=== PATIENT | male | born 1955 | race Caucasian/White ===

== ENCOUNTER → 2018-06-11 11:14 | Outpatient (CLI) | payer MEDICARE, SELFPAY ==
[2018-06-11 11:21] LABS: Microscopic, Urine URINE MICROSCOPIC (MICROSCOPIC)
[2018-06-11 14:05] LABS: Basophils % 0.4 % (0.1-2.0); Eosinophils # 0.2 K/mm3 (0.0-0.4); Eosinophils % 3.8 % (0.1-12.0); Hematocrit 40.1 % (42.0-52.0); Hemoglobin 12.6 g/dL (14.1-18.0); Lymphocytes # 2.1 K/mm3 (0.7-4.5); Lymphocytes % 32.4 % (10-50); Mean Corpuscular HGB Conc 31.4 g/dL (31.8-35.4); Mean Corpuscular Hemoglobin 32.6 pg (27.0-31.2); Mean Corpuscular Volume 103.5 fl (80-94); Mean Platelet Volume 7.2 fl (7.4-10.4); Monocytes # 0.2 K/mm3 (0.1-1.0); Monocytes % 3.8 % (1.7-9.3); Neutrophils # 3.8 K/mm3 (1.8-7.8); Neutrophils % 59.5 % (37.0-80.0); Platelet Count 291 K/mm3 (142-424); Red Blood Count 3.87 M/mm3 (4.60-6.20); Red Cell Distribution Width 14.3 % (11.5-17.5); White Blood Count 6.3 K/mm3 (4.8-10.8)
[2018-06-11 14:10] LABS: Appearance,Urine CLEAR (Clear); Bilirubin,Urine Negative (Negative); Blood, Urine Negative (Negative); Color,Urine YELLOW (Yellow); Glucose,Urine (UA) Negative (Negative); Ketones,Urine Negative (Negative); Leukocyte Esterase,Urine Negative (Negative); Nitrate,Urine Negative (Negative); PH,Urine 5.5 (5.0-8.5); Protein,Urine Negative (Negative); Urobilinogen,Urine 0.2 EU/dl (0.2)
[2018-06-11 14:20] LABS: Bacteria,Urine Trace /lpf; Squamous Epithelial Cell,Urine Occasional #/hpf (0-5)
[2018-06-11 14:53] LABS: Alanine Aminotransferase 16 U/L (12-78); Albumin Level 3.5 gm/dL (3.4-5.0); Anion Gap 13.2 mEq/L (5-15); Aspartate Amino Transferase 12 U/L (15-37); Bilirubin,Total 0.3 mg/dL (0.2-1.0); Blood Urea Nitrogen 12 mg/dL (7-18); Carbon Dioxide 28 mmol/L (21.0-32.0); Chloride 107 mmol/L (98-107); Creatinine,Serum 0.83 mg/dL (0.70-1.30); Estimated Glomerular Filt Rate 94 ml/min (>60); GFR (African American) 113 ML/MIN (>60); Glucose 90 mg/dL (74-106); Potassium 4.2 mmoL/L (3.5-5.1); Sodium 144 mmol/L (136-145); Total Protein,Serum 6.7 gm/dL (6.4-8.2)
[2018-06-11 14:54] LABS: Albumin/Globulin Ratio 1.1 (1.1-1.8); Alkaline Phosphatase 65 U/L (46-116); Chol/HDL Ratio 6.2 (1-3.5); Cholesterol 237 mg/dL (140-200); Globulin 3.2 gm/dl (1.3-3.2); HDL Cholesterol 38 mg/dL (27-67); LDL Cholesterol 183 mg/dL (0-130); Prostate Specific Ag Screen 0.2 ng/mL (0.0-4.0); Thyroid Stimulating Hormone 1.66 uIU/ml (0.358-3.740); Triglycerides 81 mg/dL (30-200); VLDL Cholesterol 16 mg/dL (0-40)
[2018-06-12 15:36] LABS: Vitamin B12 201 pg/mL (232-1245)
[2018-06-12 15:37] LABS: Folate 17.8 ng/mL (>3.0)
== END ==
PROVIDERS: PCP Emergency Medicine; Visit Provider Emergency Medicine
DX: Z12.5 Encounter for screening for malignant neoplasm of prostate (principal); E03.9 Hypothyroidism, unspecified; E78.5 Hyperlipidemia, unspecified; G62.9 Polyneuropathy, unspecified; J44.9 Chronic obstructive pulmonary disease, unspecified; E53.8 Deficiency of other specified B group vitamins
CPT/HCPCS: 36415; 80053; 80061; 81001; 82607; 82746; 84443; 85025; G0103

== ENCOUNTER → 2019-06-28 09:43 | Outpatient (CLI) | payer MEDICARE, SELFPAY ==
[2019-06-28 09:51] LABS: Microscopic, Urine URINE MICROSCOPIC (MICROSCOPIC)
[2019-06-28 14:33] LABS: Appearance,Urine CLEAR (Clear); Bilirubin,Urine Negative (Negative); Blood, Urine Negative (Negative); Color,Urine YELLOW (Yellow); Glucose,Urine (UA) Negative (Negative); Ketones,Urine Negative (Negative); Leukocyte Esterase,Urine Negative (Negative); Nitrate,Urine Negative (Negative); PH,Urine 5.5 (5.0-8.5); Protein,Urine Negative (Negative); Urobilinogen,Urine 0.2 EU/dl (0.2)
[2019-06-28 14:53] LABS: Bacteria,Urine Trace /lpf; Mucus,Urine 2+ /lpf; RBC,Urine Occasional #/hpf (0-3)
[2019-06-28 15:06] LABS: Basophils % 0.4 % (0.1-2.0); Eosinophils # 0.2 K/mm3 (0.0-0.4); Eosinophils % 2.9 % (0.1-12.0); Hematocrit 40.3 % (42.0-52.0); Hemoglobin 13.6 g/dL (14.1-18.0); Lymphocytes # 2.4 K/mm3 (0.7-4.5); Lymphocytes % 33.4 % (10-50); Mean Corpuscular HGB Conc 33.8 g/dL (31.8-35.4); Mean Corpuscular Hemoglobin 34.1 pg (27.0-31.2); Mean Corpuscular Volume 101.1 fl (80-94); Mean Platelet Volume 8.2 fl (7.4-10.4); Monocytes # 0.3 K/mm3 (0.1-1.0); Monocytes % 4.6 % (1.7-9.3); Neutrophils # 4.3 K/mm3 (1.8-7.8); Neutrophils % 58.6 % (37.0-80.0); Platelet Count 298 K/mm3 (142-424); Red Blood Count 3.98 M/mm3 (4.60-6.20); Red Cell Distribution Width 13.4 % (11.5-17.5); White Blood Count 7.3 K/mm3 (4.8-10.8)
[2019-06-28 15:29] LABS: Alanine Aminotransferase 17 U/L (12-78); Albumin Level 3.6 gm/dL (3.4-5.0); Albumin/Globulin Ratio 1.1 (1.1-1.8); Alkaline Phosphatase 73 U/L (46-116); Anion Gap 15.1 mEq/L (5-15); Aspartate Amino Transferase 14 U/L (15-37); Bilirubin,Total 0.4 mg/dL (0.2-1.0); Blood Urea Nitrogen 14 mg/dL (7-18); Calcium 8.9 mg/dL (8.5-10.1); Carbon Dioxide 25 mmol/L (21.0-32.0); Chloride 107 mmol/L (98-107); Chol/HDL Ratio 6.7 (1-3.5); Cholesterol 249 mg/dL (140-200); Creatine Kinase 84 U/L (39-308); Creatinine,Serum 0.93 mg/dL (0.70-1.30); Estimated Glomerular Filt Rate 82 ml/min (>60); GFR (African American) 99 ML/MIN (>60); Globulin 3.3 gm/dl (1.3-3.2); Glucose 90 mg/dL (74-106); HDL Cholesterol 37 mg/dL (27-67); LDL Cholesterol 191 mg/dL (0-130); Potassium 4.1 mmoL/L (3.5-5.1); Prostate Specific Ag Screen 0.4 ng/mL (0.0-4.0); Sodium 143 mmol/L (136-145); Thyroid Stimulating Hormone 2.78 uIU/ml (0.358-3.740); Total Protein,Serum 6.9 gm/dL (6.4-8.2); Triglycerides 103 mg/dL (30-200); VLDL Cholesterol 21 mg/dL (0-40)
[2019-06-29 10:21] LABS: Vitamin B12 841 pg/mL (232-1245); Vitamin D 25 Hydroxy 28.3 ng/mL (30.0-100.0)
[2019-06-29 18:09] LABS: Folate 18.6 ng/mL (>3.0)
== END ==
PROVIDERS: Visit Provider Emergency Medicine
DX: E78.5 Hyperlipidemia, unspecified (principal); E53.8 Deficiency of other specified B group vitamins; E55.9 Vitamin D deficiency, unspecified; G62.9 Polyneuropathy, unspecified; J44.9 Chronic obstructive pulmonary disease, unspecified; Z12.5 Encounter for screening for malignant neoplasm of prostate
CPT/HCPCS: 36415; 80053; 80061; 81001; 82550; 82607; 82652; 82746; 84443; 85025; G0103

== ENCOUNTER 2020-11-21 18:14 | Inpatient (IN) | payer MEDICARE, SELFPAY ==
[2020-11-21] VITALS (21 sets, daily range): BP systolic 77–120; BP diastolic 47–69; PULSE 53–77; RESP 15–18; TEMP 36.5–36.7; O2SAT 90–100; BMI 22.4; BMI 22.3
--- NOTE | 2020-11-21 | IR_ITS ---
APPROVED REPORT Patient Location: Emergent Auto Hiker: QUINTON Dugan RT (R) PROCEDURES Left heart catheterization Left ventriculogram Selective coronary angiogram Drug-eluting stent deployment to the ostial proximal and distal dominant right coronary artery Drug-eluting stent deployment to the ostial proximal left main artery INDICATION Acute inferolateral right ventricular ST elevation myocardial infarction, Cardiogenic shock, Coronary artery disease Informed consent was obtained prior to the procedure. COMPLICATIONS None Estimated Blood Loss: less than 10ml TECHNIQUE One percent lidocaine used to anesthetize the right anterior aspect of the wrist. The right radial artery was accessed via the Seldinger technique. A 6 [place] sheath was placed in the right radial artery. 2.5 mg of verapamil, 800 mcg of nitroglycerin, 1mg Lidocaine were given through the arterial sheath. A [employer] catheter was also used to perform left heart catheterization, left ventriculogram and selective coronary angiogram. The catheter was initially placed in the right coronary artery and angiography was performed. A Choice PT extra-support wire was used to push through the occlusion and initially a 3 mm x 38 mm resolute [place] stent was deployed at 20 octavio restoring THOR-3 flow and avoiding the myocardial infarction. It was apparent after inflation that the stent was undersized. Rather than post dilating the 3 mm stent it was decided to add a 4 mm x 38 mm stent which was placed distal to the stent yet still overlapping it and deployed at 20 octavio. This was much better sized and an additional 4 mm x 38 mm resolute [place] stent was then placed proximal to this extending back into the ostium and also deployed at 20 octavio. The catheter was then used to perform left coronary artery angiography however immediately on engagement there was severe dampening therefore the catheter was pulled out of the left main artery. Cusp angiography demonstrated a critical left main stenosis. Patient artery received atropine for bradycardia and hypotension. Because of the critical left main artery the Choice PT wire was then placed distally in the LAD and a 4 mm x 8 mm resolute [place] stent was deployed at 20 octavio in the ostium of the left main artery. A 5 mm x 15 mm balloon was then placed back into the stent and deployed at 20 octavio to post dilate excellent angiographic results were obtained with THOR II flow being present at the beginning of the procedure in the LAD with THOR-3 flow at the end of the procedure. After achieving excellent angiographic results the apparatus was removed the sheath was removed and good hemostasis was achieved using TR banding. Patient was transferred the postop holding in stable condition ANGIOGRAPHIC RESULTS The left main artery Has an ostial concentric 80% stenosis and a distal 20 to 30% stenosis The left anterior descending artery Has proximal tandem 30% stenoses with a mid vessel 40% stenosis The circumflex artery Is a nondominant vessel with mid vessel soft eccentric plaque The right coronary artery Is a large dominant vessel initially proximally occluded. After revascularization the right coronary artery is widely patent with excellent THOR-3 flow into large posterior lateral and posterior descending artery The COSBY ventriculogram reveals Dilated ventricle ejection fraction 25 to 30% with inferior apical hypokinesis The left ventricular end-diastolic pressure 25 to 30 mmHg IMPRESSION Critical coronary artery disease as described above Successful stenting of the ostial proximal mid and distal dominant right coronary artery all in a contiguous manner with 3 drug-eluting stents as described above Severe
--- NOTE | 2020-11-21 18:13 | ECG_ITS ---
APPROVED REPORT Exam: Resting ECG HR:52 bpm ECG Measurements Heart Rate 52 AXES WA 186 P 52 QRSd 98 QRS 58 QT 424 T 89 QTc [address] elevation, consider inferior injury or acute infarct ACUTE PA Consider right ventricular involvement in acute inferior infarct Abnormal ECG Electronically signed by : Ryan Lutz, 11/22/2020 20:27:49
--- NOTE | 2020-11-21 18:18 | HMH.EDGENADL ---
ED Disposition Clinical Impression: STEMI (ST elevation myocardial infarction) Qualifiers: Involved coronary artery: unspecified coronary artery Qualified Code(s): I21.3 - ST elevation (STEMI) myocardial infarction of unspecified site Disposition: Admitted As Inpatient Condition on Discharge: Critical Referrals: Altagracia Moreno APRN [Primary Care Provider] - Time of Disposition: 18:42 - Critical Care Critical Care Time: Yes Attestation: On , the high probability of a clinically significant, sudden or life threatening deterioration of the following system(s) required my full and direct attention, intervention and personal management. The time I documented below is in addition to time spent performing reported procedures but includes the following listed in this critical care notation. 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 - Juancarlos Inquiry Pt receiving controlled substance: No - Lab Data Lab Results 11/21/20 18:18: WBC 8.7, RBC 3.64 L, Hgb 12.3 L, Hct 36.9 L, MCV 101.3 H, MCH 33.7 H, MCHC 33.3, RDW 14.3, Plt Count 322, MPV 7.1 L, Neut % (Auto) 54.1, Lymph % (Auto) 39.7, [place] % (Auto) 4.5, Eos % (Auto) 1.2, Baso % (Auto) 0.5, Neut # (Auto) 4.7, Lymph # (Auto) 3.5, [place] # (Auto) 0.4, Eos # (Auto) 0.1, Baso # (Auto) 0.0 Result diagrams: 11/21/20 18:18 Orders (Tests/Meds): ED MEDICATIONS Generic Name Dose Route Start Last Admin Trade Name Freq PRN Reason Stop Dose Admin Diphenhydramine HCl 50 mg 11/21/20 18:32 Diphenhydramine 50mg/Ml Vial IV 11/21/20 18:33 ONCE ONE Fentanyl Citrate 25 mcg 11/21/20 18:32 Fentanyl 100mcg/2ml Vial IV 11/22/20 18:32 Q3MINP PRN Moderate to Severe Pain Fentanyl Citrate 50 mcg 11/21/20 18:32 Fentanyl 100mcg/2ml Vial IV 11/22/20 18:32 Q3MINP PRN Moderate to Severe Pain Fentanyl Citrate 25 mcg 11/21/20 18:32 Fentanyl 250mcg/5ml Vial IV 11/22/20 18:32 Q3MINP PRN Moderate to Severe Pain Fentanyl Citrate 50 mcg 11/21/20 18:32 Fentanyl 250mcg/5ml Vial IV 11/22/20 18:32 Q3MINP PRN Moderate to Severe Pain Flumazenil 0.2 mg 11/21/20 18:32 Flumazenil 0.1mg/Ml 5ml Vial IV 11/21/20 23:00 NEEDED PRN Sedation Heparin Sodium (Porcine) 10,000 unit 11/21/20 18:32 Heparin 1,000 Units/Ml 10ml Vial (Adoption Social Worker) IV 11/21/20 22:32 NEEDED PRN Emergency Box Inside Sales Professional Heparin Sodium/Sodium Chloride 3,000 unit 11/21/20 18:32 Heparin 1,000 Units/500ml Ns (Adoption Social Worker) IV 11/21/20 18:33 ONCE ONE Sodium Chloride 1,000 mls @ 25 mls/hr 11/21/20 18:45 Sod Chlor 0.9% 1000ml Bag IV 11/22/20 18:32 .Q25H NADIYA Lidocaine HCl 20 ml 11/21/20 18:32 Lidocaine 1% 5ml Pf Vial IJ 11/21/20 18:33 ONCE ONE Lidocaine HCl 20 ml 11/21/20 18:32 Lidocaine 1% 10ml Mdv IJ 11/21/20 18:33 ONCE ONE Midazolam HCl 1 mg 11/21/20 18:32 Midazolam 2mg/2ml Vial IV 11/22/20 18:32 Q3MINP PRN Sedation Midazolam HCl 1 mg 11/21/20 18:32 Midazolam Hcl 1mg/1ml 5ml Vial IV 11/22/20 18:32 Q3MINP PRN Sedation Naloxone HCl 0.4 mg 11/21/20 18:32 Naloxone 0.4mg/Ml Vial IV 11/22/20 18:32 Q5MINP PRN Decreased Respirations Nitroglycerin 800 mcg 11/21/20 18:32 Nitroglycerin 800mcg/8ml Syr (Adoption Social Worker) IV 11/22/20 18:32 NEEDED PRN Emergency Box Inside Sales Professional Verapamil HCl 2.5 mg 11/21/20 18:32 Verapamil 2.5mg/Ml 2ml Vial IV 11/21/20 18:33 ONCE ONE ORDERS Category Date Time Status CXR --portable [XR chest portable] Stat Exams 11/21/20 18:28 Taken Basic
[2020-11-21 18:25] LABS: Basophils % 0.5 % (0.1-2.0); Eosinophils # 0.1 K/mm3 (0.0-0.4); Eosinophils % 1.2 % (0.1-12.0); Hematocrit 36.9 % (42.0-52.0); Hemoglobin 12.3 g/dL (14.1-18.0); Lymphocytes # 3.5 K/mm3 (0.7-4.5); Lymphocytes % 39.7 % (10-50); Mean Corpuscular HGB Conc 33.3 g/dL (31.8-35.4); Mean Corpuscular Hemoglobin 33.7 pg (27.0-31.2); Mean Corpuscular Volume 101.3 fl (80-94); Mean Platelet Volume 7.1 fl (7.4-10.4); Monocytes # 0.4 K/mm3 (0.1-1.0); Monocytes % 4.5 % (1.7-9.3); Neutrophils # 4.7 K/mm3 (1.8-7.8); Neutrophils % 54.1 % (37.0-80.0); Platelet Count 322 K/mm3 (142-424); Red Blood Count 3.64 M/mm3 (4.60-6.20); Red Cell Distribution Width 14.3 % (11.5-17.5); White Blood Count 8.7 K/mm3 (4.8-10.8)
--- NOTE | 2020-11-21 18:28 | XR_ITS ---
PROCEDURE INFORMATION: Exam: XR Chest Exam date and time: 11/21/2020 6:28 PM Age: 65 years old Clinical indication: Abnormal findings; Abnormal ekg; Patient HX: Stemi alert TECHNIQUE: Imaging protocol: XR of the chest. Views: 1 view. COMPARISON: No relevant prior studies available. FINDINGS: Lungs: Patchy airspace opacities noted within both lung apices. The lungs are hyperinflated, consistent with underlying small airways disease. Pleural spaces: Unremarkable. No pleural effusion. No pneumothorax. Heart/Mediastinum: Unremarkable. No cardiomegaly. Vasculature: The vasculature demonstrates diffuse mild atherosclerotic calcification. Bones/joints: Unremarkable. IMPRESSION: 1. Patchy airspace opacities noted within both lung apices. 2. The lungs are hyperinflated, consistent with underlying small airways disease.
--- NOTE | 2020-11-21 18:35 | PC.NURSE ---
pt c/o chest pain, states his pain is worsening and feels like he is going to pass out. Appears to have more elevation of ST segment on compliance monitor. Notified ER MD, no new orders at this time.
[2020-11-21 18:38] LABS: Chloride 107 mmol/L (98-107); Sodium 140 mmol/L (136-145)
[2020-11-21 18:39] LABS: Potassium 4.1 mmoL/L (3.5-5.1)
--- NOTE | 2020-11-21 18:40 | PC.NURSE ---
pt to sugar laboratory assistant, transported per myself and kaushal florez
[2020-11-21 18:42] LABS: Anion Gap 11.1 mEq/L (5-15); Blood Urea Nitrogen 21 mg/dl (9-20); Calcium 9.7 mg/dl (8.4-10.2); Carbon Dioxide 26 mmol/L (22.0-30.0); Creatinine Clearance Estimated 70 mL/min (50-200); Estimated Glomerular Filt Rate 67 ml/min (>60); GFR (African American) 81 ML/MIN (>60); Glucose 126 mg/dl (74-100)
[2020-11-21 18:52] LABS: Coronavirus 19 IgG Antibody Negative (Negative); Coronavirus 19 IgM Antibody Negative (Negative)
--- NOTE | 2020-11-21 18:52 | PC.NURSE ---
Dr Levin speaking with Dr Dunham
[2020-11-21 18:55] LABS: Troponin I < 0.01 ng/ml (0.00-0.034)
--- NOTE | 2020-11-21 20:24 | PC.NURSE ---
PT ARRIVED TO FLOOR VIA STRETCHER FRO DRIER BELT CONVEYOR W/STAFF AT 2024
[2020-11-22] VITALS (14 sets, daily range): BP systolic 99–122; BP diastolic 55–65; PULSE 50–76; RESP 15–26; TEMP 36.7–36.9; O2SAT 94–98; BMI 21.2
--- NOTE | 2020-11-22 03:10 | PC.NURSE ---
@ 0213 - pt had a 32 beat run of v.tach, he was asleep at the time, pt was easily aroused. Pt denied any pain, SOA, or dizziness/light-headedness. BP 112/65, HR 48-56, RR 16, SaO2 98% on room air. Dr. Zhu notified- stated to contact him again if run was longer than this. Dr. Dunham was not paged, however as he has called this RN, he was notified of the events as well. New Order for Metoprolol tartrate 12.5mg PO q12, if pt happens to have a run of vtach again. Recommended defib pads to be kept on pt. Pt & updated on POC and episode of vtach. Questions answered.
--- NOTE | 2020-11-22 03:22 | PC.NURSE ---
Pt is A&Ox4, has ambulated to the BR 1x with staff SBA and tolerated well. Pt has been on room air, SaO2 96-99%, and lungs CTA. Right radial cath site has telfa/tegaderm DSG in place, CDI at thus far. 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 Arm board to R arm in place. Sinus Ahsan/NSR with inverted T wave & frequent PVCs noted on tele t/o most of shift. However, there was 1 episode of vtach (32beats), MDs notified. Pt has slept t/o most of the shift, although awakens easily. at bedside. Call light within reach.
[2020-11-22 06:12] LABS: Anion Gap 5.8 mEq/L (5-15); Blood Urea Nitrogen 14 mg/dl (9-20); Calcium 9.1 mg/dl (8.4-10.2); Carbon Dioxide 24 mmol/L (22.0-30.0); Chloride 112 mmol/L (98-107); Creatinine Clearance Estimated 73 mL/min (50-200); Estimated Glomerular Filt Rate 97 ml/min (>60); GFR (African American) 117 ML/MIN (>60); Glucose 86 mg/dl (74-100); Potassium 3.8 mmoL/L (3.5-5.1); Sodium 138 mmol/L (136-145)
[2020-11-22 06:14] LABS: Basophils % 0.5 % (0.1-2.0); Eosinophils # 0.1 K/mm3 (0.0-0.4); Eosinophils % 1.3 % (0.1-12.0); Hematocrit 33.6 % (42.0-52.0); Lymphocytes # 2.5 K/mm3 (0.7-4.5); Lymphocytes % 33.8 % (10-50); Mean Corpuscular HGB Conc 32.8 g/dL (31.8-35.4); Mean Corpuscular Hemoglobin 33.4 pg (27.0-31.2); Mean Corpuscular Volume 102.1 fl (80-94); Mean Platelet Volume 6.9 fl (7.4-10.4); Monocytes # 0.3 K/mm3 (0.1-1.0); Monocytes % 3.8 % (1.7-9.3); Neutrophils # 4.4 K/mm3 (1.8-7.8); Neutrophils % 60.6 % (37.0-80.0); Platelet Count 215 K/mm3 (142-424); Red Blood Count 3.29 M/mm3 (4.60-6.20); Red Cell Distribution Width 14.2 % (11.5-17.5); White Blood Count 7.3 K/mm3 (4.8-10.8)
--- NOTE | 2020-11-22 07:41 | HMH.HP ---
*Admission Date: 11/21/20 *Chief complaint: chest pain, STEMI *History of present illness: Mr. Rivera is a 65-year-old white male with past medical history of hypothyroidism, hyperlipidemia, COPD with antibiotic use every other day, and tobacco use disorder who presented to the ER via EMS secondary to chest pain. Symptoms began approximately 1-1.5 hrs prior to arrival. He reports this morning that he began having some substernal burning in his throat that progressed to his chest. Led to him having an episode of shortness of breath, diaphoresis, and dizziness. Pain also progressed to radiating to his shoulder and his back. His called EMS who contacted the ER for STEMI alert during transport. Cardiology took the patient to the Epic Ambulatory Analyst with deployment of multiple cardiac stents. See cardiac cath note for full details. Patient was noted to have severely reduced ejection fraction during the procedure and was admitted to medicine for further management after resumption of coronary artery blood flow. Patient has remained fairly stable overnight hemodynamically with stable bradycardia and well-controlled blood pressure without having received any beta-adolfo or PRAVIN inhibitor as of yet. He had a single 30 beat run of V. tach that self resolved. Has required no further intervention overnight, no defibrillation, no ACLS. Patient's is at bedside. He additionally reports smoking approximately 1.5 packs of cigarettes a day. Pleasant on interview this morning. Asking to go home. Denies significant chest pain but does have some minimal burning still. Telemetry reviewed. [facility] History I have reviewed the patient's past medical history: Yes Medical History: Reports:: Hyperlipidemia, Hypertension Denies:: Cancer, Diabetes Mellitus Type 1, Diabetes Mellitus Type 2, MRSA *Have you ever received a pneumonia vaccine?: No *Have you received a flu vaccine this season?: No Other Medical History: Reports: Hypothyroidism Other Surgeries: Yes: Hernia Repair (bilateral inguinal hernia) Amputation: No Fractures: No - *Social History Last grade of school completed: High school graduate Smoking Status: Current every day smoker Tobacco Type: cigarettes # Packs/Day (cigarettes): 1 Alcohol Intake: never *Occupational Status:: retired Housing: house Household Members: significant other, children *Travel in the last 8 weeks: None Family Hx:: Non-contributory Review of Systems - Review of Systems Review of systems:: pertinent systems reviewed and negative unless documented below (14 point review of systems performed, pertinent positives and negatives as per HPI) Meds Home Medications Medication Instructions Recorded Confirmed Type Amoxicillin [Amoxicillin 250mg 250 mg PO QODHS 10/29/17 11/21/20 History Cap] Aspirin [Aspir 81] 81 mg PO DAILY 10/29/17 11/21/20 History Albuterol Sulfate [Proair 2 puffs IH Q4HP PRN 11/21/20 11/22/20 History Respiclick] Levothyroxine Sodium 125 mcg PO DAILY 11/21/20 11/21/20 History [Levothyroxine 125mcg (0.125mg) Tab] Allergies Allergy/AdvReac Type Severity Reaction Status Date / Time No Known Allergies Allergy Verified 10/29/17 13:38 Exam Vital signs and Labs for Last 24 Hours: Temp Pulse Resp BP Pulse Ox 98.0 F 50 L 16 115/65 98 11/22/20 00:45 11/22/20 04:00 11/22/20 02:45 11/22/20 02:45 11/22/20 02:45 Laboratory Results - last 24 hr 11/21/20 18:18: WBC 8.7, RBC 3.64 L, Hgb 12.3 L, Hct 36.9 L, MCV 101.3 H, MCH 33.7 H, MCHC 33.3, RDW 14.3, Plt Count 322, MPV 7.1 L, Neut % (Auto) 54.1, Lymph % (Auto) 39.7, [place] % (Auto) 4.5, Eos % (Auto) 1.2, Baso % (Auto) 0.5, Neut # (Auto) 4.7, Lymph # (Auto) 3.5, [place] # (Auto) 0.4, Eos # (Auto) 0.1, Baso # (Auto) 0.0 11/21/20 18:18: Sodium 140, Potassium 4.1, Chloride 107, Carbon Dioxide 26, Anion Gap 11.1, BUN 21 H, Creatinine 1.10, Estimated Creat Clear 70, Estimated GFR 67, Est GFR ( Amer) 81, Glucose 126 H, Calcium 9
--- NOTE | 2020-11-22 09:36 | P.CONPHA_ITS ---
[facility] Pharmacy VTE Monitoring - Patient Demographics Admission date: 11/22/20 Report Date: 11/22/20 Time: 09:36 Allergies/Adverse Reactions: Patient Allergies No Known Allergies Allergy (Verified 10/29/17 13:38) Height: 1.83 m Weight: 71.123 kg Patient Problems: Current Active Problems STEMI (ST elevation myocardial infarction) (Acute) - VTE Risk Labs: VTE Related Lab Results Hgb 11.0 g/dL (14.1-18.0) L D 11/22/20 05:45 Hct 33.6 % (42.0-52.0) L 11/22/20 05:45 Plt Count 215 K/mm3 (142-424) D 11/22/20 05:45 BUN 14 mg/dl (9-20) D 11/22/20 05:45 Creatinine 0.80 mg/dl (0.66-1.25) D 11/22/20 05:45 Estimated Creat Clear 73 mL/min (50-200) 11/22/20 05:45 VTE Score: 2 - Prophylaxis Types of VTE Prophylaxis: IPCS Knee High (ICDS AND LOVENOX ORDERED), Pharmacological Location of Applied Device: Not Applicable
--- NOTE | 2020-11-22 10:42 | PC.NURSE ---
received call from Dr. Zhu with new orders: STOP Metoprolol, STOP LR MIVF, START Entrestro BID. Orders faxed to pharmacy.
--- NOTE | 2020-11-22 14:45 | PC.NURSE ---
Reviewed tele monitor for November 22: 0110: 6 beat run Vtach 0213: 32 beat run Vtach 0524: 4 beat run Vtach 0720: 5 beat run Vtach 1113: 4 beat run Vtach 1439: 3 beat run Vtach
--- NOTE | 2020-11-22 23:01 | PC.NURSE ---
He is A&Ox4. He denies pain. Denies chest pain. He is s/p heart cath with right radial site. DSG is C/D/I. He was educated on the potential side effects of brilinta and the importance of contacting his doctor if he was having side effects that he could not tolerate instead of just stopping taking the medication due to having drug eluding stents. His was at the bedside. She verbalized understanding. He has a flat affect and did not acknowledge the conversation. He was also educated not to put any pressure on his arm. He denies SOA. He reports his last BM was on 11/21/20. He has a home medication in his med drawer.
[2020-11-23] VITALS: BP 103/57; PULSE 66; PULSE 70; O2SAT 95
[2020-11-23 02:00] VITALS: BP 103/60; PULSE 15; PULSE 70; O2SAT 94
[2020-11-23 04:00] VITALS: BP 87/49; PULSE 70; PULSE 76; O2SAT 92; O2SAT 95
[2020-11-23 05:00] VITALS: BMI 21.2
[2020-11-23 06:00] VITALS: BP 110/56; PULSE 68; O2SAT 94
[2020-11-23 06:15] LABS: Basophils % 0.4 % (0.1-2.0); Eosinophils # 0.1 K/mm3 (0.0-0.4); Eosinophils % 1.5 % (0.1-12.0); Hematocrit 35.5 % (42.0-52.0); Hemoglobin 11.9 g/dL (14.1-18.0); Lymphocytes # 2.4 K/mm3 (0.7-4.5); Mean Corpuscular HGB Conc 33.5 g/dL (31.8-35.4); Mean Corpuscular Hemoglobin 33.7 pg (27.0-31.2); Mean Corpuscular Volume 100.6 fl (80-94); Mean Platelet Volume 7.2 fl (7.4-10.4); Monocytes # 0.4 K/mm3 (0.1-1.0); Monocytes % 4.2 % (1.7-9.3); Neutrophils # 5.6 K/mm3 (1.8-7.8); Platelet Count 243 K/mm3 (142-424); Red Blood Count 3.52 M/mm3 (4.60-6.20); Red Cell Distribution Width 14.1 % (11.5-17.5); White Blood Count 8.5 K/mm3 (4.8-10.8)
[2020-11-23 06:20] LABS: Alanine Aminotransferase 10 U/L (12-78); Albumin Level 3.5 g/dl (3.5-5.0); Albumin/Globulin Ratio 1.3 (1.1-1.8); Alkaline Phosphatase 57 U/L (38-126); Anion Gap 2.6 mEq/L (5-15); Aspartate Amino Transferase 34 U/L (17-59); Bilirubin,Total 0.4 mg/dl (0.2-1.3); Blood Urea Nitrogen 15 mg/dl (9-20); Calcium 9.1 mg/dl (8.4-10.2); Carbon Dioxide 26 mmol/L (22.0-30.0); Chloride 112 mmol/L (98-107); Cholesterol 224 mg/dl (140-200); Creatinine Clearance Estimated 73 mL/min (50-200); Estimated Glomerular Filt Rate 97 ml/min (>60); GFR (African American) 117 ML/MIN (>60); Globulin 2.6 g/dL (1.3-3.2); Glucose 91 mg/dl (74-100); HDL Cholesterol 28 mg/dl (40-60); Potassium 3.6 mmoL/L (3.5-5.1); Sodium 137 mmol/L (136-145); Total Protein,Serum 6.1 g/dl (6.3-8.2); Triglycerides 131 mg/dl (30-150); VLDL Cholesterol 26 mg/dL (0-40)
[2020-11-23 06:31] LABS: Direct LDL Cholesterol 149.13 mg/dL (100-129)
[2020-11-23 06:51] LABS: Thyroid Stimulating Hormone 1.31 uIU/mL (0.465-4.68)
[2020-11-23 07:10] LABS: Vitamin B12 225 pg/mL (239-931)
[2020-11-23 08:00] VITALS: BP 107/49; PULSE 62; PULSE 70; RESP 19; TEMP 36.7; O2SAT 93
--- NOTE | 2020-11-23 08:17 | HMH.ACPN2 ---
Internal Medicine - PN: Subj *Date: 11/23/20 *Time: 08:17 Interval history: Patient feels good, has no complaints, wishes to be discharged home. Denies shortness of air or chest pains. Exam Vital signs and Labs for Last 24 Hours: Temp Pulse Resp BP Pulse Ox 98.5 F 68 16 110/56 L 94 L 11/22/20 20:00 11/23/20 06:00 11/22/20 22:00 11/23/20 06:00 11/23/20 06:00 Laboratory Results - last 24 hr 11/23/20 05:41: WBC 8.5, RBC 3.52 L, Hgb 11.9 L, Hct 35.5 L, MCV 100.6 H, MCH 33.7 H, MCHC 33.5, RDW 14.1, Plt Count 243, MPV 7.2 L, Neut % (Auto) 66.0, Lymph % (Auto) 28.0, [place] % (Auto) 4.2, Eos % (Auto) 1.5, Baso % (Auto) 0.4, Neut # (Auto) 5.6, Lymph # (Auto) 2.4, [place] # (Auto) 0.4, Eos # (Auto) 0.1, Baso # (Auto) 0.0 11/23/20 05:41: Sodium 137, Potassium 3.6, Chloride 112 H, Carbon Dioxide 26, Anion Gap 2.6 L, BUN 15, Creatinine 0.80, Estimated Creat Clear 73, Estimated GFR 97, Est GFR ( Amer) 117, Glucose 91, Calcium 9.1, Total Bilirubin 0.4, AST 34, ALT 10 L, Alkaline Phosphatase 57, Total Protein 6.1 L, Albumin 3.5, Globulin 2.6, Albumin/Globulin Ratio 1.3, Triglycerides 131, Cholesterol 224 H, LDL Cholesterol Direct 149.13 H, VLDL Cholesterol 26, HDL Cholesterol 28 L, Cholesterol/HDL Ratio 8.0 H, TSH 1.31 11/23/20 05:41: Vitamin B12 225 L I & O for Last 24 hours: Intake & Output 11/20/20 11/21/20 11/22/20 11/23/20 11:59 11:59 11:59 11:59 Intake Total 1532 / 1532 290 / 290 Balance 1532 / 1532 290 / 290 Weight 156 lb 12.8 oz 157 lb Narrative: Alert, pleasant. Oriented x3. Abdomen soft, heart rate regular. Paced rhythm on monitor. No edema or clubbing. Lungs have good air movement. ENT exam clear. Assessment and Plan (1) STEMI (ST elevation myocardial infarction) Status: Acute Qualifiers: Involved coronary artery: unspecified coronary artery Qualified Code(s): I21.3 - ST elevation (STEMI) myocardial infarction of unspecified site Category: Medical Code(s): I21.3 - ST elevation (STEMI) myocardial infarction of unspecified site (2) Tobacco use disorder Status: Chronic Category: Medical Code(s): F17.200 - Nicotine dependence, unspecified, uncomplicated (3) COPD (chronic obstructive pulmonary disease) Status: Acute Category: Medical Code(s): J44.9 - Chronic obstructive pulmonary disease, unspecified (4) Hypothyroid Status: Chronic Qualifiers: Hypothyroidism type: acquired Qualified Code(s): E03.9 - Hypothyroidism, unspecified Category: Medical Code(s): E03.9 - Hypothyroidism, unspecified (5) Microcytic anemia Status: Acute Category: Medical Code(s): D50.9 - Iron deficiency anemia, unspecified - Assessment and plan all Dx Assessment and Plan for all problems:: Echocardiogram pending. Decision vis-?-vis LifeVest at that point. Once cardiology has cleared patient agree with discharge with close follow-up with appropriate post stent medications.
--- NOTE | 2020-11-23 08:47 | CA_ITS ---
APPROVED REPORT EXAM: Comprehensive 2D, Doppler, and color-flow Echocardiogram Enrollment Coordinator: Julissa Morgan, RCS, RVS Ht: 6 ft 0 in Wt: 156lbs BSA: 1.92 HR: 62 bpm BP: 110/56 mmHg Indications: STEMI, reduced function per 11/21/20-cardiac cath. COPD,HLD,smoker Echo Enhancing Agent Indication: Rule out thrombus Agent(s) / Amount(s) Used: Definity 2 cc 2D Dimensions IVSd 0.97 cm LVEF (Visual) 27.80 % PWd 0.78 cm LVDd 4.30 cm LVDs 3.75 cm Aortic Root 3.80 cm Left Atrium 3.02 cm LVOT 2.15 cm (M/F) 1.5-2.5 M-Mode Dimensions LA Diam 4.52 cm (1.9-4.0) Ao Diam 3.91 cm (2.0-3.7) TAPSE 2.02 (<1.7) LV Diastology E Decel Time 267.00 (160-240 msec) E/A Ratio 1.09 MED E' 4.30 (< 7 cm/sec) MED A' 11.10 cm/s E'/MED E' Ratio 13.26 (>14) LAT E' 7.10 (<10 cm/sec) LAT A' 10.50 cm/s E/LAT E' Ratio 8.03 (>14) Pulm Vein s 32.00 cm/sec Pulm Vein d 29.00 cm/sec Ar-A Duration 133.00 msec Aortic Valve LVOT Max 64.00 (70-110 cm/s) LVOT VTI 13.40 cm AoV Peak Brendan. 132.00 (50-130 cm/s) AO Peak GR. 7.00 mmHg AO Mean GR. 3.40 (<5 mmHg) AO VTI 22.75 (18-25 cm) ALLAN (VTI) 2.14 (2.5-4.5 cm2) Mitral Valve MV E Max Brendan. 57.00 (40-130 cm/s) MV A Velocity 52.00 (40-130 cm/s) E/A Ratio 1.09 MV Decel. Time 267.00 (160-240 ms) MV PHT 78.00 ms Pulmonary Valve PV Peak Velocity 55.00 (50-150 cm/s) Tricuspid Valve TR P. Velocity 235.00 cm/s RAP Estimate 10.00 mmHg RVSP 32.00 mmHg Left Ventricle Left atrium is mildly enlarged, left ventricle is normal size, mild concentric left ventricular hypertrophy, visually estimated ejection fraction approximately 40%, there is marked hypokinesis involving the basal septum, inferior inferolateral and posterior lateral wall. Grade 1 diastolic dysfunction seen without tissue Doppler evidence of raise left atrial pressure. Right Ventricle Right atrium and right ventricle are normal size and contractility. Aortic Valve Aortic valve is minimally thickened and fibrosed, there is no aortic stenosis or aortic insufficiency. Mitral Valve Mitral valve leaflets are minimally thickened, there is mild mitral regurgitation. Tricuspid Valve Tricuspid valve grossly normal, there is mild tricuspid regurgitation. Tricuspid regurgitation jet velocity is inadequate for calculation of the right ventricular systolic pressure. Pulmonic Valve Pulmonic valve is poorly visualized. Great Vessels Aortic root is normal size. Pericardium No significant pericardial effusion noted. Conclusion 1. Technically difficult study Definity contrast was utilized to delineate the endocardial surfaces. Left atrium is mildly enlarged, left ventricle is normal size, mild concentric left ventricular hypertrophy, visually estimated ejection fraction 40% with multiple segmental wall motion abnormality described above, there is no left ventricular thrombus seen. Grade 1 diastolic dysfunction without tissue Doppler evidence of raise left atrial pressure. 2. Mild mitral and tricuspid regurgitation. 3. No significant pericardial effusion noted. Electronically signed by : Rogerio De La Torre, 11/23/2020 09:53:26
[2020-11-23 11:43] VITALS: BP 116/68; PULSE 65; RESP 18; TEMP 36.8; O2SAT 95
--- NOTE | 2020-11-23 12:08 | HMH.CNCARD ---
History of Present Illness Consult date: 11/23/20 Requesting physician: Ryan Lutz Consult reason: chest pain Chief complaint: chest pain Additional Medical History:: 1. Tobacco use, continued A. COPD B. Chronic antibiotic use 2. Patient was adopted and does not know his biological parents medical history 3. Hypertension 4. Hyperlipidemia 5. Coronary artery disease with acute ST elevation [place], 11/21/2020 A. LHC, 11/21/2020, ANGIOGRAPHIC RESULTS The left main artery Has an ostial concentric 80% stenosis and a distal 20 to 30% stenosis The left anterior descending artery Has proximal tandem 30% stenoses with a mid vessel 40% stenosis The circumflex artery Is a nondominant vessel with mid vessel soft eccentric plaque The right coronary artery Is a large dominant vessel initially proximally occluded. After revascularization the right coronary artery is widely patent with excellent THOR-3 flow into large posterior lateral and posterior descending artery The COSBY ventriculogram reveals Dilated ventricle ejection fraction 25 to 30% with inferior apical hypokinesis The left ventricular end-diastolic pressure 25 to 30 mmHg IMPRESSION Critical coronary artery disease as described above Successful stenting of the ostial proximal mid and distal dominant right coronary artery all in a contiguous manner with 3 drug-eluting stents as described above Severe to critical ostial left main disease Successful stenting of the ostial left main critical to severe disease reduced to 0% with 1 drug-eluting stent Severely reduced ejection fraction Elevated LVEDP PLAN 1. Brilinta 90 twice daily plus aspirin 81 mg daily 2. Immediate tobacco cessation 3. Supportive care over at least the next 48 hours on telemetry 4. LDL less than 55 5. Start Entresto once patient is hemodynamically stable and then follow with low-dose carvedilol with plans to uptitrate the carvedilol during this hospitalization if he tolerates and plan on titrating the Entresto as an outpatient 6. Echocardiogram Monday 7. LifeVest if ejection fraction remains 35% or less Electronically signed by : Landon Zhu, 11/21/2020 20:49:57 B. Echocardiogram, 11/23/2020, ejection fraction 40% with marked hypokinesis involving the basal septum, inferior inferolateral and posterior lateral wall. Mild left atrial enlargement, mild concentric LVH, grade 1 diastolic dysfunction, mild MR and TR. No evidence of left atrial mural thrombus. Technically difficult study. 6. Hypothyroidism, on replacement therapy History of present illness: Mr. Rivera is a 65-year-old white male with past medical history of hypothyroidism, hyperlipidemia, COPD with antibiotic use every other day, and tobacco use disorder who presented to the ER via EMS secondary to chest pain. Symptoms began approximately 1-1.5 hrs prior to arrival. He reports this morning that he began having some substernal burning in his throat that progressed to his chest. Led to him having an episode of shortness of breath, diaphoresis, and dizziness. Pain also progressed to radiating to his shoulder and his back. His called EMS who contacted the ER for STEMI alert during transport. Cardiology took the patient to the [facility] with deployment of multiple cardiac stents. See cardiac cath note for full details. Patient was noted to have severely reduced ejection fraction during the procedure and was admitted to medicine for further management after resumption of coronary artery blood flow. Patient has remained fairly stable overnight hemodynamically with stable bradycardia and well-controlled blood pressure without having received any beta-adolfo or PRAVIN inhibitor as of yet. He had a single 30 beat run of V. tach that self resolved. Has required no further intervention overnight, no defibrillation, no ACLS. Patient's is at bedside. He additionally reports smoking approximately 1.5 packs of cigarettes
--- NOTE | 2020-11-23 13:13 | HMH.DCSUM ---
General - General Admission date:: 11/21/20 Discharge date: 11/23/20 HPI HPI: Mr. Rivera is a 65-year-old white male with past medical history of hypothyroidism, hyperlipidemia, COPD with antibiotic use every other day, and tobacco use disorder who presented to the ER via EMS secondary to chest pain. Symptoms began approximately 1-1.5 hrs prior to arrival. He reports this morning that he began having some substernal burning in his throat that progressed to his chest. Led to him having an episode of shortness of breath, diaphoresis, and dizziness. Pain also progressed to radiating to his shoulder and his back. His called EMS who contacted the ER for STEMI alert during transport. Cardiology took the patient to the Systems Manager with deployment of multiple cardiac stents. See cardiac cath note for full details. Patient was noted to have severely reduced ejection fraction during the procedure and was admitted to medicine for further management after resumption of coronary artery blood flow. Patient has remained fairly stable overnight hemodynamically with stable bradycardia and well-controlled blood pressure without having received any beta-adolfo or PRAVIN inhibitor as of yet. He had a single 30 beat run of V. tach that self resolved. Has required no further intervention overnight, no defibrillation, no ACLS. Patient's is at bedside. He additionally reports smoking approximately 1.5 packs of cigarettes a day. Pleasant on interview this morning. Asking to go home. Denies significant chest pain but does have some minimal burning still. Telemetry reviewed. Hospital Course Hospital Course: Patient was admitted, please see cardiac procedure note and cardiology consult note pasted below: 5. Coronary artery disease with acute ST elevation [place], 11/21/2020 A. [facility], 11/21/2020, ANGIOGRAPHIC RESULTS The left main artery Has an ostial concentric 80% stenosis and a distal 20 to 30% stenosis The left anterior descending artery Has proximal tandem 30% stenoses with a mid vessel 40% stenosis The circumflex artery Is a nondominant vessel with mid vessel soft eccentric plaque The right coronary artery Is a large dominant vessel initially proximally occluded. After revascularization the right coronary artery is widely patent with excellent THOR-3 flow into large posterior lateral and posterior descending artery The COSBY ventriculogram reveals Dilated ventricle ejection fraction 25 to 30% with inferior apical hypokinesis The left ventricular end-diastolic pressure 25 to 30 mmHg IMPRESSION Critical coronary artery disease as described above Successful stenting of the ostial proximal mid and distal dominant right coronary artery all in a contiguous manner with 3 drug-eluting stents as described above Severe to critical ostial left main disease Successful stenting of the ostial left main critical to severe disease reduced to 0% with 1 drug-eluting stent Severely reduced ejection fraction Elevated LVEDP PLAN 1. Brilinta 90 twice daily plus aspirin 81 mg daily 2. Immediate tobacco cessation 3. Supportive care over at least the next 48 hours on telemetry 4. LDL less than 55 5. Start Entresto once patient is hemodynamically stable and then follow with low-dose carvedilol with plans to uptitrate the carvedilol during this hospitalization if he tolerates and plan on titrating the Entresto as an outpatient 6. Echocardiogram Monday 7. LifeVest if ejection fraction remains 35% or less Electronically signed by : Landon Zhu, 11/21/2020 20:49:[address] elevation [place] status post multiple stents placed to RCA and left main arteries. Continue aspirin 81 mg daily and Brilinta 90 mg twice daily. 2. Cardiomyopathy with ejection fraction of 40% by echocardiogram today. Continue Entresto 24/26 mg twice daily and carvedilol 3.125 mg twice daily therapy. 3. Hyperlipidemia, continue atorvastatin 40 mg daily 4. History of
--- NOTE | 2020-11-23 14:31 | HMH.PHACLD ---
Doyle Rivera has received discharge medication counseling on the following medications: PATIENT IS BEING DISCHARGED WITH NEW PRESCRIPTIONS FOR ENTRESTO 24/26 MG BID, ATORVASTATIN 40 MG HS, BRILINTA 90 MG BID, AND CARVEDILOL 3.25 MG BID. PATIENT ALREADY TAKE S ASPIRIN 81 MG DAILY.
--- NOTE | 2020-11-23 15:24 | PC.NURSE ---
DC instruction reviewed w/ pt and his spouse. Both verbalized understanding, questions answered appropriately. IV in LFA DC'd, tip intact. Pt currently waiting on clinic pharmacy to bring 30 day supply of brilinta to be brought to room and then may be DC'd. Pt aware of follow-ups and labs that are needed prior to cards follow-up (outpatient order form sent w/ pt)
== END 2020-11-23 15:45 | disposition home or self-care (01) | DRG 246 ==
LOC: ER 18:42 → 2ND 19:14
PROVIDERS: Internal Medicine; Admitting Provider Internal Medicine Adolescent Medicine; Emergency Provider Family Medicine; PCP Nurse Practitioner Family; Visit Provider Internal Medicine Adolescent Medicine
PROC: 027137Z Dilation of Coronary Artery, Two Arteries with Four or More Drug-eluting Intraluminal Devices, Percutaneous Approach (ICD-10-PCS; principal; 2020-11-21 18:30)
DX: I21.19 ST elevation (STEMI) myocardial infarction involving other coronary artery of inferior wall (principal); R57.0 Cardiogenic shock; I25.10 Atherosclerotic heart disease of native coronary artery without angina pectoris; I10 Essential (primary) hypertension; D50.9 Iron deficiency anemia, unspecified; E03.9 Hypothyroidism, unspecified; J44.9 Chronic obstructive pulmonary disease, unspecified; I25.5 Ischemic cardiomyopathy; F17.210 Nicotine dependence, cigarettes, uncomplicated
CPT/HCPCS: 71045; 80048; 80053; 80061; 82607; 84443; 84484; 85025; 86328; 92928; 93005; 93306; 93458; 96374; 99152; 99153; 99284; C1725; C1769; C1876; C9600; J1644; Q9957; Q9967; U0003

== ENCOUNTER → 2020-11-30 14:05 | Outpatient (CLI) | payer MEDICARE, SELFPAY ==
[2020-11-30 15:34] LABS: Blood Urea Nitrogen 19 mg/dl (9-20); Calcium 9.8 mg/dl (8.4-10.2); Carbon Dioxide 29 mmol/L (22.0-30.0); Chloride 106 mmol/L (98-107); Estimated Glomerular Filt Rate 67 ml/min (>60); GFR (African American) 81 ML/MIN (>60); Glucose 89 mg/dl (74-100); Sodium 140 mmol/L (136-145)
[2020-11-30 19:02] LABS: Basophils # 0.1 K/mm3 (0-0.2); Basophils % 0.7 % (0.1-2.0); Eosinophils # 0.1 K/mm3 (0.0-0.4); Eosinophils % 1.9 % (0.1-12.0); Hematocrit 39.1 % (42.0-52.0); Hemoglobin 13.1 g/dL (14.1-18.0); Lymphocytes # 1.9 K/mm3 (0.7-4.5); Mean Corpuscular HGB Conc 33.5 g/dL (31.8-35.4); Mean Corpuscular Hemoglobin 34.1 pg (27.0-31.2); Mean Corpuscular Volume 101.8 fl (80-94); Monocytes # 0.3 K/mm3 (0.1-1.0); Monocytes % 4.3 % (1.7-9.3); Neutrophils # 5.2 K/mm3 (1.8-7.8); Neutrophils % 68.1 % (37.0-80.0); Platelet Count 315 K/mm3 (142-424); Red Blood Count 3.84 M/mm3 (4.60-6.20); Red Cell Distribution Width 13.8 % (11.5-17.5); White Blood Count 7.6 K/mm3 (4.8-10.8)
== END ==
PROVIDERS: Visit Provider Internal Medicine Adolescent Medicine
DX: I25.10 Atherosclerotic heart disease of native coronary artery without angina pectoris (principal)
CPT/HCPCS: 36415; 80048; 85025

== ENCOUNTER 2020-12-15 12:49 | Outpatient (RCR) | payer MEDICARE, SELFPAY | END 2021-03-01 10:48 | disposition home or self-care (01) | LOC: PT 12:49 | PROVIDERS: Visit Provider Internal Medicine | DX: Z95.5 Presence of coronary angioplasty implant and graft (principal) | CPT/HCPCS: 93798 ==

== ENCOUNTER → 2021-04-26 14:52 | Outpatient (CLI) | payer MEDICARE, SELFPAY ==
--- NOTE | 2021-04-26 14:53 | CA_ITS ---
APPROVED REPORT EXAM: Comprehensive 2D, Doppler, and color-flow Echocardiogram Wheel Fitter: Liat Dow RT(R) Ht: 6 ft 0 in Wt: 146lbs BSA: 1.86 BP: 107/47 mmHg Indications: COPD, smoker, fatigue, HTN, hyperlipidemia, CAD, stent, 40% EF (echo 11/21/20) 2D Dimensions LVOT 2.06 cm (M/F) 1.5-2.5 LVEF (Lemus's) 56.80 % M: 52 - 72 LV Volume 124.00 mL M: 62 - 150 LV Volume Index 66.66 mL/m2 M: 34 - 74 LA Volume 39.70 mL LA Volume Index 21.34 mL/m2 (M/F) 16-34 M-Mode Dimensions RVDd 3.61 cm (0.9-2.6) LA Diam 3.24 cm (1.9-4.0) LVDd 2.72 cm (3.5-5.7) Ao Diam 3.45 cm (2.0-3.7) LVDs 2.12 cm (3.5-5.7) IVSd 1.15 cm (0.6-1.1) PWd 0.85 cm (0.6-1.1) EF (Teich) 46.20% FS 22.10% EDV (Teich) 27.50 mL ESV (Teich) 14.80 mL LV Diastology E Decel Time 220.00 (160-240 msec) E/A Ratio 1.2 MED E' 6.80 (< 7 cm/sec) E'/MED E' Ratio 11.54 (>14) LAT E' 12.70 (<10 cm/sec) E/LAT E' Ratio 6.18 (>14) Mitral Valve MV E Max Brendan. 79.00 (40-130 cm/s) MV A Velocity 64.00 (40-130 cm/s) E/A Ratio 1.22 MV Decel. Time 220.00 (160-240 ms) MV PHT 64.00 ms Tricuspid Valve TR P. Velocity 220.00 cm/s RAP Estimate 10.00 mmHg RVSP 29.40 mmHg Left Ventricle Left atrium is mildly enlarged, left ventricle is normal size, left ventricle wall thickness is upper limit of normal, visually estimated ejection fraction 50% with no regional wall motion abnormality, endocardial surfaces are poorly visualized, Doppler evidence of impaired LV relaxation seen. Right Ventricle Right atrium is mildly enlarged, right ventricle is normal size and contractility. Aortic Valve Aortic valve is minimally thickened and fibrosed, there is no aortic stenosis or significant aortic insufficiency. Mitral Valve Mitral valve is grossly normal, there is trace mitral regurgitation. Tricuspid Valve Tricuspid grossly normal, there is mild tricuspid regurgitation, calculated right ventricular systolic pressure 29 mmHg. Pulmonic Valve Pulmonic valve is poorly visualized. Great Vessels Aortic root is normal size. Inferior vena cava is normal size with normal inspiratory collapse. Pericardium No significant pericardial effusion noted. Conclusion 1. Mild biatrial enlargement, normal left ventricular size, visually estimated ejection fraction 50% with no regional wall motion abnormality, Doppler evidence of impaired LV relaxation seen. 2. Trace mitral mild tricuspid regurgitation, calculated right ventricular systolic pressure 29 mmHg. 3. No significant pericardial effusion noted. 4. Inferior vena cava is normal size with normal inspiratory collapse. Electronically signed by : Rogerio De La Torre MD 04/26/2021 21:51:35
== END ==
PROVIDERS: PCP Nurse Practitioner Family; Visit Provider Urology
DX: E78.2 Mixed hyperlipidemia (principal); F17.200 Nicotine dependence, unspecified, uncomplicated; I25.10 Atherosclerotic heart disease of native coronary artery without angina pectoris; I25.5 Ischemic cardiomyopathy
CPT/HCPCS: 93306

== ENCOUNTER → 2021-10-08 11:37 | Outpatient (CLI) | payer MEDICARE, SELFPAY ==
--- NOTE | 2021-10-08 | CA_ITS ---
APPROVED REPORT Exam: Exercise Treadmill Technologist: Jenny Weber, Ht: 6 ft 0 in Wt: 151 lbs BSA: 1.89 m2 HR: 54 bpm BP: 134/60 mmHg Rhythm: NSR Medical History Medical History: HTN, Hyperlipidemia Medications: Levothyroxine,,,,, Aspirin,,,,, Atorvastatin,,,,, Albuterol,,,,, CloPIdogrel,,,,, Nitroglycerin,,,,, PantoprazLE,,,,, Allergies: No known drug allergies Cardiac Risk Factors: HTN, Hyperlipidemia, Smoking Stress Test Details Test: Frank, Exercise stress testing was performed using a modified Frank protocol. HR Resting HR: 60 bpm Max Heart Rate (APMHR): 153 bpm Max HR Achieved: 126 bpm Target HR (85% APMHR): 130 bpm % of APMHR: 82 Recovery HR: 67 bpm BP Resting BP: 134/60 mmHg Max BP: 175/75 mmHg Recovery BP: 135.0/61.0 mmHg ECG Resting ECG: NSR Clinical Reason for Termination: Leg Pain Dyspnea Exercise duration: 06:16 min Highest Stage Achieved: Stage 2: 2.5 mph at 12% grade. Exercise capacity: 7.0 METs Stress ECG Conclusion PT WALKED 6:15. 7.0 METS PT HAD NO CP. OCCASIONAL PVC'S, ONE COUPLET. <1.[address] SEGMENT CHANGES. NON-DIAGNOSTIC (DID NOT ACHEIVE TARGET HR) BUT NEGATIVE TO MAX HR ACHEIVED. Test Summary REST . . . . . . . Standing REST . . . . . . . Sitting REST 21:34 0.0 1.2 60 . 134/ 60 . . Stage 1 01:00 10.0 1.7 74 . . . . Stage 1 02:00 10.0 1.7 97 . . . . Stage 1 03:00 10.0 1.7 107 . 160/ 70 . . Stage 2 01:00 12.0 2.5 115 . . . . Stage 2 02:00 12.0 2.5 123 . 175/ 75 . . Stage 2 . . . . . . . Stage held Stage 2 03:00 12.0 2.5 123 . 175/ 75 . . Stage 2 . . . . . . . Stage resumed Stage 2 03:16 12.0 2.5 125 . 175/ 75 . Stop exercise at 06:16 RECOVERY 01:00 0.0 0.0 109 . . . . RECOVERY 02:00 0.0 0.0 78 . . . . RECOVERY 03:00 0.0 0.0 68 . 152/ 63 . . RECOVERY 04:00 0.0 0.0 67 . 152/ 63 . . RECOVERY 05:00 0.0 0.0 65 . 152/ 63 . . RECOVERY 05:41 0.0 0.0 66 . 135/ 61 . . Electronically signed by : Rogerio De La Torre MD 10/08/2021 16:28:31
--- NOTE | 2021-10-08 11:39 | CA_ITS ---
APPROVED REPORT EXAM: Comprehensive 2D, Doppler, and color-flow Echocardiogram Substation Supervisor: Jessica Carroll CRT Ht: 6 ft 0 in Wt: 151lbs BSA: 1.89 BP: 129/61 mmHg Indications: Chest Pain, Hyperlipidemia, Hypertension/HDD, STENTS, CAD, CM, STENTS 2D Dimensions LVOT 2.44 cm (M/F) 1.5-2.5 LA Volume 21.90 mL LA Volume Index 11.60 mL/m2 (M/F) 16-34 M-Mode Dimensions RVDd 2.62 cm (0.9-2.6) LA Diam 2.49 cm (1.9-4.0) LVDd 5.91 cm (3.5-5.7) Ao Diam 5.03 cm (2.0-3.7) LVDs 3.72 cm (3.5-5.7) IVSd 1.14 cm (0.6-1.1) PWd 0.61 cm (0.6-1.1) EF (Teich) 66.10% FS 37.10% EDV (Teich) 173.90 mL TAPSE 2.30 (<1.7) ESV (Teich) 58.90 mL LV Diastology E Decel Time 443.00 (160-240 msec) E/A Ratio 0.94 MED E' 10.20 (< 7 cm/sec) MED A' 13.90 cm/s E'/MED E' Ratio 7.61 (>14) LAT E' 11.80 (<10 cm/sec) LAT A' 14.30 cm/s E/LAT E' Ratio 6.58 (>14) Aortic Valve AO Peak GR. 4.90 mmHg Mitral Valve MV E Max Brendan. 78.00 (40-130 cm/s) MV A Velocity 82.00 (40-130 cm/s) E/A Ratio 0.94 MV Decel. Time 443.00 (160-240 ms) MV PHT 130.00 ms Pulmonary Valve PV Peak Velocity 127.00 (50-150 cm/s) Tricuspid Valve TR P. Velocity 219.00 cm/s RAP Estimate 10.00 mmHg RVSP 29.20 mmHg Left Ventricle Left atrium is mildly enlarged, left ventricle is normal size, mild concentric left ventricular hypertrophy, estimated ejection fraction 55% with no regional wall motion abnormality, grade 1 diastolic dysfunction seen without tissue Doppler evidence of raise left atrial pressure. Right Ventricle Right atrium and right ventricle are normal size and contractility. Aortic Valve Aortic valve is minimally thickened and fibrosed, there is no aortic stenosis or aortic insufficiency. Mitral Valve Mitral valve is grossly normal, there is trace mitral regurgitation. Tricuspid Valve Tricuspid valve grossly normal, there is trace tricuspid regurgitation, tricuspid regurgitation jet velocity is inadequate for calculation of the right ventricular systolic pressure. Pulmonic Valve Pulmonic valve is poorly visualized. Great Vessels Aortic root is normal size. Inferior vena cava is poorly visualized. Pericardium No significant pericardial effusion noted. Conclusion 1. Normal left ventricular size, mild concentric left ventricular hypertrophy, estimated ejection fraction 55% with no obvious regional wall motion abnormality, endocardial cells are poorly visualized. Grade 1 diastolic dysfunction seen without tissue Doppler evidence of raise left atrial pressure. 2. Trace mitral and tricuspid regurgitation. 3. No significant pericardial effusion noted. 4. Inferior vena cava is poorly visualized. Electronically signed by : Rogerio De La Torre MD 10/08/2021 16:20:33
--- NOTE | 2021-10-08 11:43 | NM_ITS ---
APPROVED REPORT Exam: Nuclear Stress Test Indication: CAD, HX.NH., HYPERLIPIDEMIA, TOB USE, ANGINA, SOB, FATIGUE Patient Location: Outpatient Stress Tech: Jenny Weber NH Tech:Elisa AvilaQUINTON RT (R)(N)(M) Ht: 6 ft 0 in Wt: 150 lbs HR: 54 bpm BP: 134/60 mmHg BSA: 1.88 m2 History: CAD, HX.NH., HYPERLIPIDEMIA, TOB USE, ANGINA, SOB, FATIGUE Procedure: Patient exercised on Frank protocol 6:15 minutes and sec, resting heart rate 54 bpm, resting blood pressure 134/60 mmHg, with exercise maximum heart rate achived was 126 bpm which is 97 % of the maximum predicted heart rate and blood pressure was 175/75 mmHg. Test was stopped due to fatigue. Patient denied any complaint of chest pain. Patient has Adequate exercise capacity, achieved 7.0 METs of workload on treadmill, the blood pressure response to exercise was Adequate. Electrocardiogram Resting electrocardiogram shows sinus rhythm, with exercise there is less than 1.[address] segment depression noted from the baseline EKG. The EKG portion of the exercise Myoview is nondiagnostic as patient did not achieve the target heart rate. Cardiac Stress and Resting SPECT Images: Cardiac Stress and Resting SPECT images were obtained using technetium 99m Myoview 30.0 mCi stress and 10.30 mCi at rest. Gated SPECT for analysis of segmental wall motion and calculation of the ejection fraction also done. Prone images were also obtained. Cardiac stress and resting SPECT images were fixed defect at the apex and inferior wall, inferior wall defect has normal contractility on gated SPECT is likely secondary to soft tissue attenuation, apical defect appears to be prior myocardial scarring without significant clifford-infarct ischemia. Computer derived ejection fraction is 49% with apical wall moderate hypokinesis. Right ventricle is mildly enlarged with normal contractility. Conclusion: 1. The EKG portion of the exercise Myoview is nondiagnostic as patient did not achieve the target heart rate, patient has adequate exercise capacity achieved 7 METS of workload on treadmill, the blood pressure response to exercise was adequate, there was no exercise-induced chest discomfort. 2. No scintigraphic evidence of reversible ischemia seen, a fixed defect in the apex is secondary to myocardial scarring, computer derived ejection fraction is 49% with segmental wall motion abnormality described above, right ventricle is mildly enlarged with normal contractility. 3. Abnormal exercise Myoview study. Electronically signed by : Rogerio De La Torre MD 10/08/2021 16:32:12
== END ==
PROVIDERS: PCP Nurse Practitioner Family; Visit Provider Internal Medicine Cardiovascular Disease
DX: E78.5 Hyperlipidemia, unspecified (principal); F17.200 Nicotine dependence, unspecified, uncomplicated; I25.5 Ischemic cardiomyopathy; Z01.810 Encounter for preprocedural cardiovascular examination; I20.8 Other forms of angina pectoris
CPT/HCPCS: 78452; 93017; 93306; A9502

== ENCOUNTER → 2022-11-23 06:11 | Outpatient (CLI) | payer MEDICARE, SELFPAY ==
[2022-11-23 16:52] LABS: Basophils % 0.6 % (0.1-2.0); Eosinophils # 0.2 K/mm3 (0.0-0.4); Hematocrit 42.1 % (42.0-52.0); Hemoglobin 13.3 g/dL (14.1-18.0); Lymphocytes # 2.2 K/mm3 (0.7-4.5); Lymphocytes % 32.4 % (10-50); Mean Corpuscular HGB Conc 31.5 g/dL (31.8-35.4); Mean Corpuscular Hemoglobin 34.8 pg (27.0-31.2); Mean Corpuscular Volume 110.4 fl (80-94); Mean Platelet Volume 8.3 fl (7.4-10.4); Monocytes # 0.4 K/mm3 (0.1-1.0); Monocytes % 5.6 % (1.7-9.3); Neutrophils % 58.3 % (37.0-80.0); Platelet Count 304 K/mm3 (142-424); Red Blood Count 3.81 M/mm3 (4.60-6.20); Red Cell Distribution Width 13.9 % (11.5-17.5); White Blood Count 6.9 K/mm3 (4.8-10.8)
[2022-11-23 17:45] LABS: Alanine Aminotransferase 15 U/L (12-78); Albumin Level 4.2 g/dl (3.5-5.0); Albumin/Globulin Ratio 1.6 (1.1-1.8); Alkaline Phosphatase 79 U/L (38-126); Anion Gap 16.4 mEq/L (5-15); Aspartate Amino Transferase 24 U/L (17-59); Bilirubin,Total 0.3 mg/dl (0.2-1.3); Blood Urea Nitrogen 18 mg/dl (9-20); Calcium 9.5 mg/dl (8.4-10.2); Carbon Dioxide 27 mmol/L (22.0-30.0); Chloride 103 mmol/L (98-107); Chol/HDL Ratio 3.2 (1-3.5); Cholesterol 136 mg/dl (140-200); Estimated Glomerular Filt Rate 67 ml/min (>60); GFR (African American) 81 ML/MIN (>60); Globulin 2.6 g/dL (1.3-3.2); Glucose 95 mg/dl (74-100); HDL Cholesterol 43 mg/dl (40-60); Potassium 4.4 mmoL/L (3.5-5.1); Sodium 142 mmol/L (136-145); Total Protein,Serum 6.8 g/dl (6.3-8.2); Triglycerides 91 mg/dl (30-150); VLDL Cholesterol 18 mg/dL (0-40)
[2022-11-23 17:56] LABS: Direct LDL Cholesterol 74.76 mg/dL (100-129)
[2022-11-23 18:04] LABS: T4 (Thyroxine) 10.9 ug/dl (5.53-11.0)
[2022-11-23 18:16] LABS: Prostate Specific Ag Screen 2.1 ng/ml (0.0-4.0); Thyroid Stimulating Hormone 2.03 uIU/mL (0.465-4.68)
[2022-11-23 18:34] LABS: Iron 88 ug/dL (49-181); Total Iron Binding Capacity 280 ug/dL (261-462)
[2022-11-23 18:36] LABS: Vitamin B12 710 pg/mL (239-931)
[2022-11-23 19:08] LABS: Hemoglobin A1C 5.2 % (4.0-6.0)
[2022-11-25 12:30] LABS: Testosterone,Total 838 ng/dL (264-916)
== END ==
PROVIDERS: PCP Family Medicine; Visit Provider Family Medicine
DX: I10 Essential (primary) hypertension (principal); R53.83 Other fatigue; Z00.00 Encounter for general adult medical examination without abnormal findings; Z12.5 Encounter for screening for malignant neoplasm of prostate; E53.8 Deficiency of other specified B group vitamins; E11.9 Type 2 diabetes mellitus without complications
CPT/HCPCS: 80053; 80061; 82607; 83036; 83540; 83550; 84403; 84436; 84443; 85025; G0103

== ENCOUNTER 2023-08-24 01:36 | Emergency (ER) | payer MEDICARE, SELFPAY ==
[2023-08-24] VITALS (9 sets, daily range): BP systolic 111–144; BP diastolic 54–59; PULSE 48–57; RESP 13–19; TEMP 36.7; O2SAT 97–100; BMI 19.9
--- NOTE | 2023-08-24 01:37 | XR_ITS ---
PROCEDURE INFORMATION: Exam: XR Chest Exam date and time: 08/24/2023 1:45 AM Age: 67 years old Clinical indication: Pain; Chest pressure; Additional info: Cp TECHNIQUE: Imaging protocol: Radiologic exam of the chest. Views: 1 view. COMPARISON: CR XR CHEST PORTABLE 11/21/2020 6:29 PM FINDINGS: Lungs: Hyperinflated lungs. Bilateral upper lung reticular opacities. There is a 2.7 cm nodular focus in the left upper chest which may be a parenchymal nodule or prominent and of the 1st rib. Pleural spaces: No pleural effusion. No pneumothorax. Heart/Mediastinum: Cardiac silhouette is normal in size for technique. Bones/joints: See Lungs finding. IMPRESSION: 1. Mild pulmonary hyperinflation. No evidence of cardiac decompensation or pneumonia. 2. Incidental 2.5 cm density projecting over the left upper chest could be a parenchymal nodule or prominent end of the 1st rib. Consider chest CT for further evaluation.
--- NOTE | 2023-08-24 01:38 | ECG_ITS ---
APPROVED REPORT Exam: Resting ECG HR:54 bpm ECG Measurements Heart Rate 54 AXES RI 182 P 62 QRSd 99 QRS -37 QT 398 T 66 QTc 383 Conclusion SINUS BRADYCARDIA LEFT AXIS DEVIATION [QRS AXIS < -30] ABNORMAL ECG UNCONFIRMED REPORT Electronically signed by : Ryan Lutz MD 08/26/2023 06:38:28
--- NOTE | 2023-08-24 01:39 | ED_ITS ---
Discharge Plan Disposition Patient Disposition: Home, Self-Care Prescriptions Prescriptions: No Action nitroglycerin 0.4 mg tablet, sublingual 0.4 mg SUBLINGUAL Q5M Qty: 25 0RF Rx Instructions: do not exceed 3 doses per episode albuterol sulfate [Ventolin HFA] 90 mcg/actuation HFA aerosol inhaler 2 puff inhalation Q6H PRN (Reason: shortness of breath or wheezing) 30 Days Qty: 6.7 3RF levothyroxine 150 mcg tablet 150 mcg PO DAILY 30 Days Qty: 30 2RF clopidogrel [Plavix] 75 mg tablet 75 mg PO QDAY Qty: 30 3RF famotidine [Pepcid] 40 mg tablet 40 mg PO Q12H Qty: 60 2RF amoxicillin 250 mg capsule 250 mg PO .every other day 30 Days Qty: 18 0RF atorvastatin 40 mg tablet 40 mg PO HS 30 Days Qty: 30 0RF aspirin 81 MG tablet,delayed release (DR/EC) 81 mg PO DAILY Referrals Follow up/Referrals: Mio Hill MD [Primary Care Provider] - See instructions Activity Restrictions/Add. Instructions Additional Instructions/Restrictions: Please follow-up with your tabulating supervisor. Please follow-up with your primary care provider. Please return to the emergency department if you develop any new or worsening symptoms or become concerned for your health. Clinical Impressions Clinical Impression: Chest pain Qualifiers: Chest pain type: unspecified Qualified Code(s): R07.9 - Chest pain, unspecified Discharge ED Provider: Jc Riojas General Adult HPI General Chief complaint: Chest Pain Stated complaint: Chest pain Time Seen by Provider: 08/24/23 01:37 History of Present Illness HPI narrative: 67-year-old male with history of COPD, coronary artery disease, presents with chest pain. Reports chest pain was centrally located. Reports he initially thought it might be GERD, but symptoms were persistent. He took a nitro at home. He was given aspirin by EMS. On arrival he reports his symptoms are improved. Denies any shortness of breath. Related Data Home Medications Medication Instructions Recorded Confirmed aspirin 81 mg tablet,delayed 81 mg PO DAILY Heart disease 10/29/17 03/01/23 release Previous Rx's Medication Instructions Recorded nitroglycerin 0.4 mg sublingual 0.4 mg sublingual Q5M #25 tabs 05/17/21 tablet albuterol sulfate 90 mcg/actuation 2 puff inhalation Q6H PRN 03/24/23 aerosol inhaler (Ventolin HFA) shortness of breath or wheezing 30 days #6.7 grams levothyroxine 150 mcg tablet 150 mcg PO DAILY hypothyroidism 30 05/22/23 days #30 tabs clopidogrel 75 mg tablet (Plavix) 75 mg PO QDAY #30 tabs 05/29/23 famotidine 40 mg tablet (Pepcid) 40 mg PO Q12H #60 tabs 05/29/23 amoxicillin 250 mg capsule 250 mg PO .every other day COPD 08/08/23 30 days #18 caps atorvastatin 40 mg tablet 40 mg PO HS 30 days #30 tabs 08/08/23 Allergies Allergy/AdvReac Type Severity Reaction Status Date / Time codeine Allergy Verified 03/01/23 09:16 Sulfa (Sulfonamide Allergy Verified 03/01/23 09:16 Antibiotics) [facility] Disclaimer: The information contained in this section may have been updated after the p atient was seen, as this information can be updated by other users. Medical History CAD (coronary artery disease) NOVEMBER 2020-Successful stenting of the ostial proximal mid and distal dominant right coronary artery all in a contiguous manner with 3 drug-eluting stents as described above Severe to critical ostial left main disease Successful stenting of the ostial left main critical to severe disease reduced to 0% with 1 drug-eluting stent Severely reduced ejection fraction Elevated LVEDP COPD (chronic obstructive pulmonary disease) Diastolic dysfunction HLD (hyperlipidemia) Hypotension Hypothyroid Ischemic cardiomyopathy Microcytic anemia STEMI (ST elevation myocardial infarction) Tobacco use disorder Surgical History H/O bilateral inguinal hernia repair H/O heart artery stent Family History Sister Thyroid disorder Social History Smoking Status: Current every day smoker tobacco type: cigarettes packs per day: 1 alcohol intake: never substance use type: denies use current occupational status: retired Travel in the last 8 weeks: Inside the [place] household members: significant other and children housing: house caffeine: Yes ROS Obtained: Yes All systems reviewed & no additional complaints except as documented Physical Exam General General appearance: alert and in no apparent distress Head Head exam: atraumatic and normocephalic Eye Eye exam: Present normal appearance, PERRL and EOMI ENT ENT exam: Present normal oropharynx and normal external ear exam Neck Neck exam: Present normal inspection and full ROM Chest Chest inspection: Present normal inspection and symmetric chest wall rise; Absent tenderness Respiratory Respiratory exam: Present normal lung sounds bilaterally; Absent respiratory distress Cardiovascular Cardiovascular exam: Present regular rate and normal rhythm Abdominal Exam Abdominal exam: Present soft; Absent distention, tenderness or guarding Extremities Exam Extremities exam: Present normal inspection; Absent edema or joint swelling Back Exam Back exam: Present normal inspection; Absent tenderness Neurological Exam Neurological exam: Present alert and oriented X3; Absent motor sensory deficit Psychiatric Psychiatric exam: Present normal affect and normal mood Skin Skin exam: Present warm, dry and normal color Lymphatic Lymphatic Findings: no adenopathy Medical Decision Making Medical Records Medical records reviewed: Yes I reviewed the patient's medical records. Juancarlos Inquiry Pt receiving controlled substance: No Juancarlos was queried for this patient: No Vital Signs: 08/24/23 01:36 08/24/23 01:45 08/24/23 02:00 Temperature 98.1 F Temperature Source Oral Pulse Rate 57 L 48 L Pulse Rate [Left Radial] 57 L Respiratory Rate 16 18 Blood Pressure 113/54 L Blood Pressure [Left Arm] 144/58 H Blood Pressure Mean [Left Arm] 86 Blood Pressure Source Blood Pressure Source [Left Arm] Automatic Cuff Blood Pressure Position Blood Pressure Position [Left Arm] Sitting 02 Sat by Pulse Oximetry 100 98 Oxygen Delivery Method Room Air 08/24/23 02:30 08/24/23 03:15 08/24/23 03:30 Temperature Temperature Source Pulse Rate 49 L 52 L 50 L Pulse Rate [Left Radial] Respiratory Rate 19 17 18 Blood Pressure 118/56 L 126/56 L 113/59 L Blood Pressure [Left Arm] Blood Pressure Mean [Left Arm] Blood Pressure Source Blood Pressure Source [Left Arm] Blood Pressure Position Blood Pressure Position [Left Arm] 02 Sat by Pulse Oximetry 98 97 97 Oxygen Delivery Method 08/24/23 04:00 08/24/23 04:30 08/24/23 05:12 Temperature 98.0 F Temperature Source Oral Pulse Rate 49 L 50 L 57 L Pulse Rate [Left Radial] Respiratory Rate 15 16 13 Blood Pressure 113/54 L 111/54 L 132/58 L Blood Pressure [Left Arm] Blood Pressure Mean [Left Arm] Blood Pressure Source Automatic Cuff Blood Pressure Source [Left Arm] Blood Pressure Position Supine Blood Pressure Position [Left Arm] 02 Sat by Pulse Oximetry 97 98 Oxygen Delivery Method Room Air Lab Data Lab results reviewed: Yes I reviewed the patient's lab results. Lab Results 08/24/23 01:40: WBC 6.8, RBC 3.34 L, Hgb 11.6 L, Hct 35.4 L, MCV 106.0 H, MCH 34.6 H, MCHC 32.6, RDW 14.2, Plt Count 240, MPV 7.3 L, Neut % (Auto) 58.4, Lymph % (Auto) 34.8, Routt % (Auto) 4.7, Eos % (Auto) 1.8, Baso % (Auto) 0.4, Neut # (Auto) 3.9, Lymph # (Auto) 2.3, Routt # (Auto) 0.3, Eos # (Auto) 0.1, Baso # (Auto) 0.0, Sodium 141, Potassium 3.8, Chloride 108 H, Carbon Dioxide 30, Anion Gap 6.8, BUN 16, Creatinine 1.00, Estimated Creat Clear 67, Estimated GFR 74, Est GFR ( Amer) 90, Glucose 98, Calcium 9.1, Total Bilirubin 0.3, AST 33, ALT 18, Alkaline Phosphatase 74, Troponin I < 0.01, Total Protein 6.4, Albumin 3.7, Globulin 2.7, Albumin/Globulin Ratio 1.4 08/24/23 04:34: Troponin I < 0.01 08/24/23 01:40 08/24/23 01:40 Orders (Tests/Meds): ORDERS Category Date Time Status CXR --portable [XR chest portable] Stat Exams 08/24/23 01:37 Completed CBC w/Auto Diff [Complete Blood Count Auto Diff] Stat Lab 08/24/23 01:40 Completed CMP [Comprehensive Metabolic Panel] Stat Lab 08/24/23 01:40 Completed Troponin I Q3H Lab 08/24/23 01:40 Completed Troponin I Q3H Lab 08/24/23 04:34 Completed ECG initial Besson Routine Y 08/24/23 01:38 Completed ECG Data Tracing #1: I reviewed this ECG and interpreted as documented below: Sinus rhythm, bradycardia with rate of 54, no ST or T wave changes, no Q waves, no evidence of arrhythmia. ECG initial impression date: 08/24/23 ECG initial impression time: 01:39 HEART Score History (anamnesis): Moderately suspicious ECG: Normal Age: >65 years Risk factors: Atherosclerosis history Troponin: </= normal limit HEART Score: 5 Medical Decision Narrative: 67-year-old male presents with chest pain. History was obtained via conversation with patient, chart review, EMS. On arrival, patient is [afebrile, hemodynamically stable, satting appropriately, alert, oriented x4, GCS 15], moving all extremities spontaneously. Full physical exam performed and significant for clear lungs bilaterally. Differential includes but is not limited to ACS, musculoskeletal chest pain, GERD. Patient was given aspirin prior to arrival for symptomatic management and correction of underlying abnormalities. Workup initiated including CBC CMP EKG chest x-ray troponin. On re-evaluation, patient [remains afebrile, HD stable.] Laboratory workup independently interpreted by me and significant for initial negative troponin, no leukocytosis, normal electrolytes and renal function. Imaging independently interpreted by me and significant for no focal consolidation, no pneumothorax. see radiology read for full review of final results. Patient was placed in ED observation status at 2:10 AM for cardiac monitoring and serial cardiac enzymes to prevent potentially unnecessary admission. On reassessment, on my interpretation of quality assurance monitor final patient natasha in sinus rhythm with mild bradycardia. Repeat troponin returned undetectably low. Patient reports symptomatic improvement. Patient was taken out of ED observation status at 5:10 AM. Total time in observation 3 hours. Interactive discussion had with patient regarding his symptoms. We considered admission for evaluation of high risk chest pain given heart score of 5, but shared decision- making was utilized and patient was ultimately discharged. He was encouraged to follow-up with his PCP and with cardiology for further assessment. Patient discharged in stable condition. Procedures Risk/Benefits of Procedure(s) Were Explained: Yes Critical Care Critical Care Time Critical Care Time: No
[2023-08-24 01:46] LABS: Basophils % 0.4 % (0.1-2.0); Eosinophils # 0.1 K/mm3 (0.0-0.4); Eosinophils % 1.8 % (0.1-12.0); Hematocrit 35.4 % (42.0-52.0); Hemoglobin 11.6 g/dL (14.1-18.0); Lymphocytes # 2.3 K/mm3 (0.7-4.5); Lymphocytes % 34.8 % (10-50); Mean Corpuscular HGB Conc 32.6 g/dL (31.8-35.4); Mean Corpuscular Hemoglobin 34.6 pg (27.0-31.2); Mean Platelet Volume 7.3 fl (7.4-10.4); Monocytes # 0.3 K/mm3 (0.1-1.0); Monocytes % 4.7 % (1.7-9.3); Neutrophils # 3.9 K/mm3 (1.8-7.8); Neutrophils % 58.4 % (37.0-80.0); Platelet Count 240 K/mm3 (142-424); Red Blood Count 3.34 M/mm3 (4.60-6.20); Red Cell Distribution Width 14.2 % (11.5-17.5); White Blood Count 6.8 K/mm3 (4.8-10.8)
[2023-08-24 01:53] LABS: Alanine Aminotransferase 18 U/L (12-78); Albumin Level 3.7 g/dl (3.5-5.0); Albumin/Globulin Ratio 1.4 (1.1-1.8); Alkaline Phosphatase 74 U/L (38-126); Anion Gap 6.8 mEq/L (5-15); Aspartate Amino Transferase 33 U/L (17-59); Bilirubin,Total 0.3 mg/dl (0.2-1.3); Blood Urea Nitrogen 16 mg/dl (9-20); Calcium 9.1 mg/dl (8.4-10.2); Carbon Dioxide 30 mmol/L (22.0-30.0); Chloride 108 mmol/L (98-107); Creatinine Clearance Estimated 67 mL/min (50-200); Estimated Glomerular Filt Rate 74 ml/min (>60); GFR (African American) 90 ML/MIN (>60); Globulin 2.7 g/dL (1.3-3.2); Glucose 98 mg/dl (74-100); Potassium 3.8 mmoL/L (3.5-5.1); Sodium 141 mmol/L (136-145); Total Protein,Serum 6.4 g/dl (6.3-8.2)
[2023-08-24 02:06] LABS: Troponin I < 0.01 ng/ml (0.00-0.034)
--- NOTE | 2023-08-24 02:44 | PC.NURSE ---
Rounded on patient, no needs voiced at this time.
--- NOTE | 2023-08-24 03:33 | PC.NURSE ---
Rounded on patient, patient resting at this time.
--- NOTE | 2023-08-24 04:12 | PC.NURSE ---
Rounded on patient. patient assisted to the restroom at this time.
--- NOTE | 2023-08-24 04:17 | PC.NURSE ---
provided patient with warm blanket at this time.
[2023-08-24 05:00] LABS: Troponin I < 0.01 ng/ml (0.00-0.034)
--- NOTE | 2023-08-24 05:12 | PC.NURSE ---
in room talking with patient at this time.
== END 2023-08-24 05:20 | disposition home or self-care (01) ==
PROVIDERS: Emergency Provider Emergency Medicine; PCP Family Medicine
DX: R07.9 Chest pain, unspecified (principal); J44.9 Chronic obstructive pulmonary disease, unspecified; I25.10 Atherosclerotic heart disease of native coronary artery without angina pectoris; E78.5 Hyperlipidemia, unspecified; E03.9 Hypothyroidism, unspecified; R00.1 Bradycardia, unspecified; I25.5 Ischemic cardiomyopathy; I25.2 Old myocardial infarction; F17.210 Nicotine dependence, cigarettes, uncomplicated
CPT/HCPCS: 71045; 80053; 84484; 85025; 93005; 99285

== ENCOUNTER 2023-11-07 13:28 | Outpatient (CLI) | payer MEDICARE, SELFPAY ==
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
== END 2023-11-07 23:59 | disposition home or self-care (01) ==
LOC: RAD 13:29
PROVIDERS: PCP Family Medicine; Visit Provider Family Medicine
DX: R51.9 Headache, unspecified (principal)
CPT/HCPCS: 70450

== ENCOUNTER 2023-12-16 13:21 | Emergency (ER) | payer MEDICARE, SELFPAY ==
[2023-12-16 14:00] VITALS: BP 129/53; PULSE 62; RESP 18; TEMP 36.8; O2SAT 98; BMI 19.3
[2023-12-16 14:12] LABS: UTC Strep Screen (Rapid) Positive (Negative)
--- NOTE | 2023-12-16 14:12 | ED_ITS ---
Discharge Plan Disposition Patient Disposition: Home, Self-Care Condition: Good Prescriptions Prescriptions: New azithromycin [Zithromax] 250 mg tablet 250 mg PO UD DOSE PK Qty: 6 0RF Rx Instructions: Take two (2) tablets today, then one (1) tablet days #2 thru #5 benzonatate 100 mg capsule 100 mg PO TIDP PRN (Reason: Cough) Qty: 30 0RF methylprednisolone 4 mg Tablets,Dose Pack 4 mg PO DIRECTED 6 Days Qty: 21 0RF Rx Instructions: Take 1 pack as directed for 6 days No Action nitroglycerin 0.4 mg tablet, sublingual 0.4 mg SUBLINGUAL Q5M Qty: 25 0RF Rx Instructions: do not exceed 3 doses per episode hydroxyzine HCl 25 mg tablet 25 mg PO QID PRN (Reason: nausea and vomiting) Qty: 20 0RF hydrocodone-acetaminophen 5-325 mg tablet 1 tab PO Q4-6H PRN (Reason: pain) Qty: 20 0RF famotidine [Pepcid] 40 mg tablet 40 mg PO Q12H Qty: 60 2RF clopidogrel [Plavix] 75 mg tablet 75 mg PO QDAY Qty: 30 3RF albuterol sulfate [Ventolin HFA] 90 mcg/actuation HFA aerosol inhaler 2 puff inhalation Q6H PRN (Reason: shortness of breath or wheezing) 30 Days Qty: 6.7 3RF levothyroxine 150 mcg tablet 150 mcg PO DAILY 90 Days Qty: 90 1RF atorvastatin 40 mg tablet 40 mg PO HS 30 Days Qty: 30 2RF amoxicillin 250 mg capsule 250 mg PO .every other day 90 Days Qty: 45 2RF aspirin 81 MG tablet,delayed release (DR/EC) 81 mg PO DAILY Referrals Follow up/Referrals: Mio Hill MD [Primary Care Provider] - See instructions Activity Restrictions/Add. Instructions Additional Instructions/Restrictions: Drink plenty of fluids. Take tylenol or ibuprofen for pain or fever. Take the medications as directed. Follow up with your regular doctor. GO TO THE ER FOR ANY WORSENING SYMPTOMS Clinical Impressions Clinical Impression: Strep throat Instructions Patient Instructions: Strep Throat, DI for Strep Throat Discharge ED Provider: Jh Perry [facility] General Stated complaint: sore throat, headache Time Seen by Provider: 12/16/23 14:12 Related Data Home Medications Medication Instructions Recorded Confirmed aspirin 81 mg tablet,delayed 81 mg PO DAILY Heart disease 10/29/17 12/16/23 release Previous Rx's Medication Instructions Recorded nitroglycerin 0.4 mg sublingual 0.4 mg sublingual Q5M #25 tabs 11/30/20 tablet famotidine 40 mg tablet (Pepcid) 40 mg PO Q12H #60 tabs 05/29/23 clopidogrel 75 mg tablet (Plavix) 75 mg PO QDAY #30 tabs 08/29/23 albuterol sulfate 90 mcg/actuation 2 puff inhalation Q6H PRN 09/05/23 aerosol inhaler (Ventolin HFA) shortness of breath or wheezing 30 days #6.7 grams levothyroxine 150 mcg tablet 150 mcg PO DAILY hypothyroidism 90 09/26/23 days #90 tabs atorvastatin 40 mg tablet 40 mg PO HS 30 days #30 tabs 10/10/23 hydrocodone 5 mg-acetaminophen 325 1 tab PO Q4-6H PRN pain #20 tabs 11/07/23 mg tablet hydroxyzine HCl 25 mg tablet 25 mg PO QID PRN nausea and 11/07/23 vomiting #20 tabs amoxicillin 250 mg capsule 250 mg PO .every other day COPD 12/14/23 90 days #45 caps azithromycin 250 mg tablet 250 mg PO UD DOSE PK #6 tabs 12/16/23 (Zithromax) benzonatate 100 mg capsule 100 mg PO TIDP PRN Cough #30 caps 12/16/23 methylprednisolone 4 mg tablets in 4 mg PO DIRECTED 6 days #21 tabs 12/16/23 a dose pack Allergies Allergy/AdvReac Type Severity Reaction Status Date / Time codeine Allergy Verified 12/16/23 14:14 Sulfa (Sulfonamide Allergy Verified 12/16/23 14:14 Antibiotics) [facility] Disclaimer: The information contained in this section may have been updated after the patient was seen, as this information can be updated by other users. Medical History Hypotension Diastolic dysfunction HLD (hyperlipidemia) CAD (coronary artery disease) NOVEMBER 2020-Successful stenting of the ostial proximal mid and distal dominant right coronary artery all in a contiguous manner with 3 drug-eluting stents as described above Severe to critical ostial left main disease Successful stenting of the ostial left main critical to severe disease reduced to 0% with 1 drug-eluting stent Severely reduced ejection fraction Elevated LVEDP Ischemic cardiomyopathy Microcytic anemia Hypothyroid COPD (chronic obstructive pulmonary disease) Tobacco use disorder STEMI (ST elevation myocardial infarction) Surgical History H/O heart artery stent H/O bilateral inguinal hernia repair Family History Sister Thyroid disorder Social History Smoking Status: Current every day smoker tobacco type: cigarettes packs per day: 1 alcohol intake: never substance use type: denies use current occupational status: retired Travel in the last 8 weeks: [place] the [place] household members: significant other and children housing: house caffeine: Yes ROS Obtained: Yes All systems reviewed & no additional complaints except as documented Constitutional Constitutional: Reports chills and Reports fever(s) Eyes Eyes: Denies eye discharge ENT Ears, Nose, Mouth, and Throat: Reports as per HPI Cardiovascular Cardiovascular: Denies chest pain Respiratory Respiratory: Denies chest congestion and Reports cough Gastrointestinal Gastrointestingal: Reports nausea; Denies abdominal pain, constipation, cramping, diarrhea or vomiting Musculoskeletal Musculoskeletal: Denies arthralgias Integumentary/Breasts Skin/Breast: Denies rash Neurologic Neurologic: Denies paresthesias Physical Exam General General appearance: alert and in no apparent distress Head Head exam: atraumatic, normocephalic and normal inspection Eye Eye exam: Present normal appearance, PERRL and EOMI ENT ENT exam: Present mucous membranes moist and normal external ear exam Expanded ENT Exam TM/Canal exam: Bilateral TM: erythema and bulging Nose exam: Absent sinus tenderness Mouth exam: Present normal external inspection; Absent drooling Teeth exam: Present normal inspection Throat exam: Present tonsillar erythema, tonsillomegaly and tonsillar exudate Neck Neck exam: Present normal inspection, full ROM and trachea midline; Absent tenderness, meningismus or lymphadenopathy Chest Chest inspection: Present normal inspection and symmetric chest wall rise; Absent tenderness Respiratory Respiratory exam: Present normal lung sounds bilaterally; Absent respiratory distress, wheezes or stridor Cardiovascular Cardiovascular exam: Present regular rate and normal rhythm; Absent systolic murmur or diastolic murmur Abdominal Exam Abdominal exam: Present soft and normal bowel sounds; Absent distention, tenderness, guarding, rebound or rigidity Extremities Exam Extremities exam: Present normal inspection and normal capillary refill; Absent calf tenderness Back Exam Back exam: Present normal inspection and full ROM; Absent tenderness, CVA tenderness (R) or CVA tenderness (L) Neurological Exam Neurological exam: Present alert, oriented X3 and CN II-XII intact Psychiatric Psychiatric exam: Present normal affect and normal mood Skin Skin exam: Present warm, dry, intact and normal color Medical Decision Making Medical Records Medical records reviewed: No I reviewed the patient's medical records. Juancarlos Inquiry Pt receiving controlled substance: No Lab Data Lab results reviewed: Yes I reviewed the patient's lab results. Lab Results 12/16/23 14:05: Strep Scn [facility] Positive A
[2023-12-16 14:53] VITALS: BP 129/53; PULSE 62; RESP 18; TEMP 36.8; O2SAT 98
== END 2023-12-16 14:53 | disposition home or self-care (01) ==
PROVIDERS: Emergency Provider Nurse Practitioner Family; PCP Family Medicine
DX: J02.0 Streptococcal pharyngitis (principal); R07.0 Pain in throat; R51.9 Headache, unspecified
CPT/HCPCS: 87880; 99204; 99212; G0463

== ENCOUNTER 2024-01-10 11:11 | Outpatient (CLI) | payer MEDICARE, SELFPAY ==
--- NOTE | 2024-01-10 11:11 | CA_ITS ---
APPROVED REPORT EXAM: Comprehensive 2D, Doppler, and color-flow Echocardiogram Director Product Development: Hilda Watts RVT Ht: 6 ft 0 in Wt: 142lbs BSA: 1.84 BP: 140/72 mmHg Indications: CAD,DYSPENA,HFrEF,HLD,SMOKER,HX ISCHEMIC CM,CP 2D Dimensions IVSd 1.18 cm M: 0.6-1.2 LVEF (Visual) 55.50 % PWd 0.81 cm M: 0.6 - 1.2 LA Volume 63.20 mL LVDd 4.42 cm M: 4.2 - 5.9 LA Volume Index 34.35 mL/m2 (M/F) 16-34 LVDs 3.15 cm M: 2.5 - 4.0 M-Mode Dimensions LA Diam 2.70 cm (1.9-4.0) TAPSE 2.02 (<1.7) LV Diastology E Decel Time 220 (160-240 msec) E/A Ratio 0.8 Aortic Valve ALLAN Index 1.97 cm2/m2 AoV Peak Brendan. 139.0 (50-130 cm/s) AO Peak GR. 7.70 mmHg AO Mean GR. 4.10 (<5 mmHg) AO VTI 33.0 (18-25 cm) ALLAN (VTI) 3.73 (2.5-4.5 cm2) Mitral Valve MV E Max Brendan. 69.0 (40-130 cm/s) MV A Velocity 86.0 (40-130 cm/s) E/A Ratio 0.81 MV PHT 64.0 ms Pulmonary Valve PV Peak Velocity 82.0 (50-150 cm/s) Tricuspid Valve TR P. Velocity 286.00 cm/s RAP Estimate 10.00 mmHg RVSP 42.70 mmHg Left Ventricle The left ventricle is normal size. The left ventricular systolic function is low-normal. There is normal left ventricular wall thickness. The septum is asynchronous. Borderline global hypokinesis is present. The left ventricular diastolic function is normal. LVEF is 50%. Right Ventricle Right ventricle is mildly dilated. The right ventricular systolic function is normal. Atria The left atrium size is normal. The right atrium size is normal. There is no Doppler evidence of interatrial shunt. Aortic Valve The aortic valve opens well. There is no aortic valvular stenosis. No aortic regurgitation is present. Mitral Valve The mitral valve is normal in structure. No evidence of mitral valve stenosis. Mild mitral regurgitation. Tricuspid Valve The tricuspid valve leaflets are thin and pliable. Mild tricuspid regurgitation. RVSP is 30-35 mmHg. Pulmonic Valve The pulmonary valve is normal in structure. Trace pulmonic regurgitation. Great Vessels The aortic root is normal in size. The ascending aorta is not well-visualized. IVC is normal in size and collapses >50% with inspiration. Pericardium There is no pericardial effusion. Other Information Study Quality: Adequate Conclusion Low normal LV systolic function (LVEF 50%). Asynchronous septum. Mild RV dilation. Mild MR, mild TR. RVSP 30-35 mmHg. Electronically signed by : Kelsey Freeman MD 01/14/2024 17:04:22
== END 2024-01-10 23:59 | disposition home or self-care (01) ==
PROVIDERS: PCP Family Medicine; Visit Provider Nurse Practitioner Family
DX: R06.02 Shortness of breath (principal); I25.119 Atherosclerotic heart disease of native coronary artery with unspecified angina pectoris; R42 Dizziness and giddiness; R53.83 Other fatigue; Z86.79 Personal history of other diseases of the circulatory system; F17.210 Nicotine dependence, cigarettes, uncomplicated
CPT/HCPCS: 93306

== ENCOUNTER 2024-03-19 15:39 | Outpatient (CLI) | payer MEDICARE, SELFPAY ==
[2024-03-19 16:52] LABS: Basophils % 0.7 % (0.1-2.0); Eosinophils # 0.2 K/mm3 (0.0-0.4); Hemoglobin 11.9 g/dL (14.1-18.0); Lymphocytes % 34.4 % (10-50); Mean Corpuscular HGB Conc 31.4 g/dL (31.8-35.4); Mean Corpuscular Hemoglobin 35.3 pg (27.0-31.2); Mean Corpuscular Volume 112.3 fl (80-94); Mean Platelet Volume 8.6 fl (7.4-10.4); Monocytes # 0.3 K/mm3 (0.1-1.0); Monocytes % 5.3 % (1.7-9.3); Neutrophils # 3.2 K/mm3 (1.8-7.8); Neutrophils % 56.6 % (37.0-80.0); Platelet Count 279 K/mm3 (142-424); Red Blood Count 3.38 M/mm3 (4.60-6.20); Red Cell Distribution Width 14.2 % (11.5-17.5); White Blood Count 5.7 K/mm3 (4.8-10.8)
[2024-03-19 17:34] LABS: Alanine Aminotransferase 19 U/L (12-78); Albumin Level 3.8 g/dl (3.5-5.0); Albumin/Globulin Ratio 1.4 (1.1-1.8); Alkaline Phosphatase 75 U/L (38-126); Aspartate Amino Transferase 31 U/L (17-59); Bilirubin,Total 0.5 mg/dl (0.2-1.3); Blood Urea Nitrogen 15 mg/dl (9-20); Calcium 9.7 mg/dl (8.4-10.2); Carbon Dioxide 28 mmol/L (22.0-30.0); Chloride 111 mmol/L (98-107); Cholesterol 124 mg/dl (140-200); Estimated Glomerular Filt Rate 96 ml/min (>60); GFR (African American) 116 ML/MIN (>60); Globulin 2.7 g/dL (1.3-3.2); Glucose 79 mg/dl (74-100); Total Protein,Serum 6.5 g/dl (6.3-8.2); Triglycerides 67 mg/dl (30-150); VLDL Cholesterol 13 mg/dL (0-40)
[2024-03-19 17:37] LABS: Anion Gap 7.7 mEq/L (5-15); Chol/HDL Ratio 3.2 (1-3.5); HDL Cholesterol 39 mg/dl (40-60); Potassium 4.7 mmoL/L (3.5-5.1); Sodium 142 mmol/L (136-145)
[2024-03-19 17:45] LABS: Direct LDL Cholesterol 66.47 mg/dL (100-129)
[2024-03-19 18:02] LABS: Thyroid Stimulating Hormone 0.55 uIU/mL (0.465-4.68)
== END 2024-03-19 23:59 | disposition home or self-care (01) ==
LOC: LAB.DROPOF 03-20 15:39
PROVIDERS: PCP Family Medicine; Visit Provider Family Medicine
DX: R53.83 Other fatigue (principal); E03.9 Hypothyroidism, unspecified; Z12.5 Encounter for screening for malignant neoplasm of prostate; E78.5 Hyperlipidemia, unspecified
CPT/HCPCS: 80050; 80053; 80061; 84443; 85025; G0103

== ENCOUNTER 2024-03-25 12:41 | Outpatient (CLI) | payer MEDICARE, SELFPAY ==
--- NOTE | 2024-03-25 12:42 | CA_ITS ---
FINAL REPORT TECHNIQUE: Duplex color Doppler with spectral analysis performed of the lower extremities. CLINICAL HISTORY: CLAUDICATION,SMOKER,HLD COMPARISON: None FINDINGS: RIGHT LOWER EXTREMITY: Velocities cm/sec: HAND COLLATOR: 77 Prof A: 90 SFA Prox: 93 SFA Mid: 103 SFA Dist: 132 POP: 58 MACHINE STAKER Prox: 81 MACHINE STAKER Mid: 88 MACHINE STAKER Dist: 76 REUBEN Dist: 73 Per A Prox: 73 Per A Mid: 55 Waveforms are triphasic and biphasic. LEFT LOWER EXTREMITY: Velocities cm/sec: HAND COLLATOR: 52 Prof A: 88 SFA Prox: 94 SFA Mid: 76 SFA Dist: 91 POP: 46 MACHINE STAKER Prox: 70 MACHINE STAKER Mid: 102 MACHINE STAKER Dist: 60 REUBEN Dist: 79 Per A Prox: 61 Per A Mid: 56 Waveforms are triphasic and biphasic. IMPRESSION: No significant peripheral artery disease. Reviewed, Interpreted and Dictated by Oscar Keith III, MD Transcribed by Estelita Ozuna Authenticated and [facility]
== END 2024-03-25 23:59 | disposition home or self-care (01) ==
LOC: RT 12:42
PROVIDERS: PCP Family Medicine; Visit Provider Family Medicine
DX: I73.9 Peripheral vascular disease, unspecified (principal)
CPT/HCPCS: 93925

== ENCOUNTER 2024-05-27 08:38 | Outpatient (CLI) | payer MEDICARE, SELFPAY ==
--- NOTE | 2024-05-27 08:39 | CT_ITS ---
FINAL REPORT TECHNIQUE: Axial images through the abdomen and pelvis were performed without contrast.This study was performed with techniques to keep radiation doses as low as reasonably achievable, (ALARA). Individualized dose reduction techniques using automated exposure control or adjustment of mA and/or kV according to the patient's size were employed. CLINICAL HISTORY: RLQ and LLQ abdominal pain FINDINGS: ABDOMEN: The lung bases are clear. The heart size is normal. Limited images of the liver are unremarkable. There is nonspecific gallbladder wall thickening with possible pericholecystic fluid. Consider ultrasound and/or nuclear medicine hepatobiliary scan for further evaluation. The spleen is normal. No adrenal mass is identified. The aorta is normal in caliber. There is no significant free fluid or adenopathy. There is no nephrolithiasis. There is no hydronephrosis. There are moderate vascular calcifications. Moderate to large amount of stool is present. There is sigmoid diverticulosis without evidence of diverticulitis. Multiple fluid-filled bowel loops are seen which may represent ileus versus enteritis. PELVIS: There is a tubular, retrocecal structure measuring up to 12 mm which may represent decompressed terminal ileum versus enlarged appendix. If there is clinical concern for appendicitis, recommend follow-up CT with oral and IV contrast. The urinary bladder is unremarkable. There is no significant free fluid or adenopathy. IMPRESSION: Nonspecific gallbladder wall thickening with possible pericholecystic fluid. Consider ultrasound and/or nuclear medicine hepatobiliary scan for further evaluation. Multiple fluid-filled bowel loops which may represent ileus versus enteritis. Tubular retrocecal structure measuring up to 12 mm which may represent terminal ileum versus enlarged appendix. If there is clinical concern for appendicitis, recommend follow-up CT with oral and IV contrast. Reviewed, Interpreted and Dictated by Oscar Keith III, MD Transcribed by Barbie You Authenticated and [facility]
--- NOTE | 2024-05-27 08:39 | CT_ITS ---
FINAL REPORT CLINICAL HISTORY: persistent headache after trauma COMPARISON: 11/07/2023 FINDINGS: Axial images of the head were obtained without contrast. Coronal reformatted images were also obtained. This study was performed with techniques to keep radiation doses as low as reasonably achievable (ALARA). Individualized dose reduction techniques using automated exposure control or adjustment of mA and/or kV according to the patient''s size were employed. There is generalized age-appropriate atrophy. Periventricular low-attenuation areas are seen consistent with mild chronic ischemic changes. There is no evidence of intracranial hemorrhage or mass. There is no evidence of acute infarct. There is no evidence of shift of the midline structures. No skull abnormality is seen on the bone window images. IMPRESSION: Atrophy and mild periventricular chronic ischemic changes. No acute intracranial abnormality identified. Reviewed, Interpreted and Dictated by Oscar Keith III, MD Transcribed by Barbie You Authenticated and [facility]
== END 2024-05-27 23:59 | disposition home or self-care (01) ==
LOC: RAD 08:39
PROVIDERS: PCP Family Medicine; Visit Provider Family Medicine
DX: R10.9 Unspecified abdominal pain (principal); R51.9 Headache, unspecified
CPT/HCPCS: 70450; 74176

== ENCOUNTER 2024-05-29 09:35 | Outpatient (CLI) | payer MEDICARE, SELFPAY ==
--- NOTE | 2024-05-29 09:35 | US_ITS ---
FINAL REPORT CLINICAL HISTORY: ABN CT COMPARISON: None FINDINGS: Sonographic images of the right upper quadrant were obtained. The pancreas is partially obscured.The liver has an unremarkable appearance. There is gallbladder wall thickening, measuring up to 5 mm in thickness. There is abnormal hyperechoic material in the fundus of the gallbladder, that may represent focal sludge versus a soft tissue mass. There is moderate biliary ductal dilatation. The common hepatic duct measures 14 mm. Limited images of the right kidney are unremarkable. IMPRESSION: Gallbladder wall thickening, with abnormal hyperechoic material in the fundus of the gallbladder that may represent focal sludge versus a soft tissue mass. Moderate biliary ductal dilatation, the common hepatic duct measuring up to 14 mm in diameter. Recommend MRCP or ERCP for further evaluation. Reviewed, Interpreted and Dictated by Oscar Keith III, MD Transcribed by Olivia Colon Authenticated and [facility]
== END 2024-05-29 23:59 | disposition home or self-care (01) ==
LOC: RAD 09:35
PROVIDERS: PCP Family Medicine; Visit Provider Family Medicine
DX: R10.9 Unspecified abdominal pain (principal)
CPT/HCPCS: 76705

== ENCOUNTER 2024-06-19 10:14 | Outpatient (CLI) | payer MEDICARE, SELFPAY ==
[2024-06-19 16:56] LABS: Basophils # 0.1 K/mm3 (0-0.2); Basophils % 0.8 % (0.1-2.0); Eosinophils # 0.3 K/mm3 (0.0-0.4); Eosinophils % 4.3 % (0.1-12.0); Hematocrit 36.3 % (42.0-52.0); Hemoglobin 11.9 g/dL (14.1-18.0); Lymphocytes # 1.8 K/mm3 (0.7-4.5); Lymphocytes % 27.7 % (10-50); Mean Corpuscular HGB Conc 32.7 g/dL (31.8-35.4); Mean Corpuscular Hemoglobin 35.5 pg (27.0-31.2); Mean Corpuscular Volume 108.7 fl (80-94); Mean Platelet Volume 7.8 fl (7.4-10.4); Monocytes # 0.4 K/mm3 (0.1-1.0); Neutrophils % 61.3 % (37.0-80.0); Platelet Count 244 K/mm3 (142-424); Red Blood Count 3.34 M/mm3 (4.60-6.20); Red Cell Distribution Width 14.4 % (11.5-17.5); White Blood Count 6.6 K/mm3 (4.8-10.8)
[2024-06-19 17:03] LABS: Alanine Aminotransferase 20 U/L (12-78); Albumin Level 3.9 g/dl (3.5-5.0); Albumin/Globulin Ratio 1.8 (1.1-1.8); Alkaline Phosphatase 94 U/L (38-126); Anion Gap 8.6 mEq/L (5-15); Aspartate Amino Transferase 33 U/L (17-59); Bilirubin,Total 0.5 mg/dl (0.2-1.3); Blood Urea Nitrogen 19 mg/dl (9-20); Calcium 9.6 mg/dl (8.4-10.2); Carbon Dioxide 28 mmol/L (22.0-30.0); Chloride 110 mmol/L (98-107); Estimated Glomerular Filt Rate 84 ml/min (>60); GFR (African American) 101 ML/MIN (>60); Globulin 2.2 g/dL (1.3-3.2); Glucose 67 mg/dl (74-100); Potassium 4.6 mmoL/L (3.5-5.1); Sodium 142 mmol/L (136-145); Total Protein,Serum 6.1 g/dl (6.3-8.2)
[2024-06-19 17:41] LABS: HIV (1&2) Antibody Rapid NONREACTIVE (NONREACTIVE)
[2024-06-20 06:15] LABS: HCV Ab Non Reactive (Non Reactive)
== END 2024-06-19 23:59 | disposition home or self-care (01) ==
LOC: LAB.DROPOF 06-20 09:32
PROVIDERS: PCP Family Medicine; Visit Provider Family Medicine
DX: D50.9 Iron deficiency anemia, unspecified (principal); D64.9 Anemia, unspecified; Z11.59 Encounter for screening for other viral diseases; Z11.4 Encounter for screening for human immunodeficiency virus [HIV]
CPT/HCPCS: 80053; 85025; 86803; 87389

== ENCOUNTER 2024-06-24 11:42 | Emergency (ER) | payer MEDICARE, SELFPAY ==
[2024-06-24 11:55] VITALS: BP 112/56; PULSE 57; RESP 18; TEMP 36.8; O2SAT 96; BMI 19.9
--- NOTE | 2024-06-24 12:01 | EXP.UTC ---
Discharge Plan Disposition Patient Disposition: Home, Self-Care Condition: Good Prescriptions Prescriptions: New methylprednisolone [Medrol (Luis)] 4 mg tablets,dose pack See Rx Instructions .Route .COMPLEX 6 Days Qty: 21 0RF Rx Instructions: taper pack; No Action nitroglycerin 0.4 mg tablet, sublingual 0.4 mg SUBLINGUAL Q5M Qty: 25 0RF Rx Instructions: do not exceed 3 doses per episode metoprolol succinate 25 mg tablet extended release 24 hr 25 mg PO QDAY Qty: 90 3RF famotidine [Pepcid] 40 mg tablet 40 mg PO Q12H Qty: 60 2RF levothyroxine 150 mcg tablet 150 mcg PO DAILY 90 Days Qty: 90 1RF atorvastatin 40 mg tablet 40 mg PO HS 30 Days Qty: 30 2RF clopidogrel [Plavix] 75 mg tablet 75 mg PO QDAY Qty: 30 3RF aspirin 81 MG tablet,delayed release (DR/EC) 81 mg PO DAILY Referrals Follow up/Referrals: Mio Hill MD [Primary Care Provider] - See instructions Activity Restrictions/Add. Instructions Additional Instructions/Restrictions: Over the counter Benadryl may help with rash Start oral steriods tomorrow Look around and make sure that nothing has changed that you may be having a reaction too Follow up with your Family Doctor if rash returns for further testing and evaluation Clinical Impressions Clinical Impression: Rash and nonspecific skin eruption Instructions Patient Instructions: DI for Rash Print Language Print Language: Serbian Discharge ED Provider: Yanet Dumont [facility] HPI General Stated complaint: rash all over Mode of Arrival: Ambulatory Source of Information: Patient Time Seen by Provider: 06/24/24 12:01 Description of Symptoms (Recalled from Triage Doc. by RN): RASH ALL OVER, ITCHING HEENT Symptoms (Recalled from RN notes): No Resp Symptoms (Recalled from RN notes): No Skin Symptoms (Recalled from RN notes): Yes MS Symptoms (Recalled from RN notes): No Functional Status (Recalled from RN notes): WNL History of Present Illness Provider Complaint: Patient states that he woke up this morning with rash all over and itching States this is the same thing he done before when he had a reaction to bactrim States that he hasnt changed anything at home and not sure what he may be having a reaction too Denies trouble swallowing denies feeling like throat is swelling Related Data Home Medications ?Medication ?Instructions ?Recorded ?Confirmed aspirin 81 mg tablet,delayed 81 mg PO DAILY Heart disease 10/29/17 06/24/24 release Previous Rx's ?Medication ?Instructions ?Recorded nitroglycerin 0.4 mg sublingual 0.4 mg sublingual Q5M #25 tabs 11/30/20 tablet metoprolol succinate 25 mg 25 mg PO QDAY #90 tabs 12/27/23 tablet,extended release 24 hr famotidine 40 mg tablet (Pepcid) 40 mg PO Q12H #60 tabs 03/27/24 levothyroxine 150 mcg tablet 150 mcg PO DAILY hypothyroidism 90 03/27/24 days #90 tabs atorvastatin 40 mg tablet 40 mg PO HS 30 days #30 tabs 04/16/24 clopidogrel 75 mg tablet (Plavix) 75 mg PO QDAY #30 tabs 04/23/24 methylprednisolone 4 mg tablets in See Rx Instructions .Route 06/24/24 a dose pack (Medrol (Luis)) .COMPLEX 6 days #21 tabs Allergies Allergy/AdvReac Type Severity Reaction Status Date / Time codeine Allergy Verified 06/19/24 09:09 Sulfa (Sulfonamide Allergy Verified 06/19/24 09:09 Antibiotics) Worker's Comp Is this a Worker's Comp case?: No [facility] Disclaimer: The information contained in this section may have been updated after the patient was seen, as this information can be updated by other users. Medical History SOB (shortness of breath) on exertion Hypotension Diastolic dysfunction HLD (hyperlipidemia) CAD (coronary artery disease) NOVEMBER 2020-Successful stenting of the ostial proximal mid and distal dominant right coronary artery all in a contiguous manner with 3 drug-eluting stents as described above Severe to critical ostial left main disease Successful stenting of the ostial left main critical to severe disease reduced to 0% with 1 drug-eluting stent Severely reduced ejection fraction Elevated LVEDP Ischemic cardiomyopathy Microcytic anemia Hypothyroid COPD (chronic obstructive pulmonary disease) Tobacco use disorder STEMI (ST elevation myocardial infarction) Surgical History H/O heart artery stent H/O bilateral inguinal hernia repair Family History Sister Thyroid disorder Social History Smoking Status: Current every day smoker tobacco type: cigarettes packs per day: 1 alcohol intake: never substance use type: denies use current occupational status: retired Travel in the last 8 weeks: Inside the [place] household members: significant other and children housing: house caffeine: Yes ROS Obtained: Yes All systems reviewed & no additional complaints except as documented and Yes Systems reviewed as appropriate & no additional complaints except as documented Constitutional Constitutional: Reports system reviewed and no additional complaints, except as documented and Reports as per HPI ENT Ears, Nose, Mouth, and Throat: Reports system reviewed and no additional complaints, except as documented and Reports as per HPI Cardiovascular Cardiovascular: Reports system reviewed and no additional complaints, except as documented and Reports as per HPI Respiratory Respiratory: Reports system reviewed and no additional complaints, except as documented and Reports as per HPI Musculoskeletal Musculoskeletal: Reports system reviewed and no additional complaints, except as documented and Reports as per HPI Integumentary/Breasts Skin/Breast: Reports system reviewed and no additional complaints, except as documented, Reports as per HPI, Reports pruritus and Reports rash Neurologic Neurologic: Reports system reviewed and no additional complaints, except as documented and Reports as per HPI Physical Exam General General appearance: alert and in no apparent distress ENT ENT exam: Present normal exam, normal oropharynx, mucous membranes moist and TM's normal bilaterally Respiratory Respiratory exam: Present normal lung sounds bilaterally; Absent respiratory distress or wheezes Cardiovascular Cardiovascular exam: Present regular rate, normal rhythm and normal heart sounds Neurological Exam Neurological exam: Present alert, oriented X3 and normal gait Skin Skin exam: Present rash (urticaria like rash noted on back and chest area) Medical Decision Making Medical Records Screening: Per USPSTF and CDC recommendations, given the prevalence of disease in our region, it is our hospital?s policy to screen for HIV and viral Hepatitis for all patients aged 18 and over and those with ongoing risk factors. Juancarlos Inquiry Pt receiving controlled substance: No Juancarlos was queried for this patient: No Vital Signs: 06/24/24 11:55 Temperature 98.3 F Temperature Source Oral Pulse Rate [Left Radial] 57 L Respiratory Rate 18 Blood Pressure [Left Arm] 112/56 L Blood Pressure Mean [Left Arm] 74 02 Sat by Pulse Oximetry 96 Medical Decision Narrative: Rash appears to be improving
[2024-06-24] MEDS: METHYLPREDNISOLONE SOD SUCC 125MG VIAL 125 MG IM (12:11)
[2024-06-24 12:43] VITALS: BP 112/56; PULSE 57; RESP 18; TEMP 36.8
== END 2024-06-24 12:45 | disposition home or self-care (01) ==
PROVIDERS: Emergency Provider Nurse Practitioner; PCP Family Medicine
DX: R21 Rash and other nonspecific skin eruption (principal); L29.9 Pruritus, unspecified
CPT/HCPCS: 99212; G0381; J2919

== ENCOUNTER 2024-07-04 13:41 | Outpatient (CLI) | payer MEDICARE, SELFPAY ==
[2024-07-04 13:47] LABS: Adenovirus F 40/41, stool Not Detected (NotDetected); Astrovirus Not Detected (NotDetected); Campylobacter Not Detected (NotDetected); Clostridium Difficile A/B, PCR Not Detected (NotDetected); Cryptosporidium Not Detected (NotDetected); Cyclospora Cayetanesis Not Detected (NotDetected); Entamoeba histolytica Not Detected (NotDetected); Enteroaggregative E coli Not Detected (NotDetected); Enteropathogenic E coli Not Detected (NotDetected); Enterotoxigenic E coli Not Detected (NotDetected); Giardia lamblia Not Detected (NotDetected); Norovirus Not Detected (NotDetected); Plesimonas Shigalloides, PCR Not Detected (NotDetected); Rotavirus A Not Detected (NotDetected); Salmonella, PCR Not Detected (NotDetected); Sapovirus Not Detected (NotDetected); Shiga-like toxin E coli Not Detected (NotDetected); Shigella Enterovasive E coli Not Detected (NotDetected); Vibrio Cholerae Not Detected (NotDetected); Vibrio, PCR Not Detected (NotDetected); Yersinia Entercolitica, PCR Not Detected (NotDetected)
[2024-07-08 05:30] LABS: Pancreatic Elastase, Fecal 549 (>200)
== END 2024-07-04 23:59 | disposition home or self-care (01) ==
LOC: LAB 13:42
PROVIDERS: PCP Family Medicine; Visit Provider Nurse Practitioner Family
DX: R15.9 Full incontinence of feces (principal); R19.7 Diarrhea, unspecified
CPT/HCPCS: 82656; 87506

== ENCOUNTER 2024-08-14 09:37 | Outpatient (CLI) | payer MEDICARE, SELFPAY ==
--- NOTE | 2024-08-14 09:38 | MR_ITS ---
FINAL REPORT CLINICAL HISTORY: dilated CBD on CT and U/S/right side abd pain COMPARISON: 05/27/2024 FINDINGS: Multiplanar MR imaging of the abdomen was obtained without contrast. Images are degraded by patient motion. The liver parenchyma is homogeneous. The gallbladder is present. There is abnormal gallbladder wall thickening and mild pericholecystic edema. The common duct is significantly enlarged measuring 13 mm. The pancreatic duct is normal in size. No pancreatic head mass is identified. There is no point of obstruction. There is no definite choledocholithiasis. IMPRESSION: Common duct measures 13 mm with mild intrahepatic ductal dilatation. No definite pancreatic mass or choledocholithiasis, cannot exclude stricture at the level of the ampulla. ERCP may be of value. Gallbladder wall thickening with mild surrounding edema, cannot exclude a calculus cholecystitis. Reviewed, Interpreted and Dictated by Aguila Adam MD Transcribed by Monica Laws Authenticated and [facility]
== END 2024-08-14 23:59 | disposition home or self-care (01) ==
LOC: RAD 09:38
PROVIDERS: PCP Family Medicine; Visit Provider Nurse Practitioner Family
DX: K83.8 Other specified diseases of biliary tract (principal)
CPT/HCPCS: 74181; 76376

== ENCOUNTER 2024-09-19 13:18 | Outpatient (CLI) | payer MEDICARE, SELFPAY ==
[2024-09-19 16:31] LABS: Basophils % 0.6 % (0.1-2.0); Eosinophils # 0.1 K/mm3 (0.0-0.4); Eosinophils % 1.5 % (0.1-12.0); Hematocrit 39.1 % (42.0-52.0); Hemoglobin 12.8 g/dL (14.1-18.0); Lymphocytes % 29.3 % (10-50); Mean Corpuscular HGB Conc 32.7 g/dL (31.8-35.4); Mean Corpuscular Hemoglobin 34.7 pg (27.0-31.2); Mean Platelet Volume 9.2 fl (7.4-10.4); Monocytes # 0.5 K/mm3 (0.1-1.0); Neutrophils # 4.2 K/mm3 (1.8-7.8); Neutrophils % 61.3 % (37.0-80.0); Platelet Count 246 K/mm3 (142-424); Red Blood Count 3.69 M/mm3 (4.60-6.20); Red Cell Distribution Width 13.8 % (11.5-17.5); White Blood Count 6.9 K/mm3 (4.8-10.8)
== END 2024-09-19 23:59 | disposition home or self-care (01) ==
LOC: LAB.DROPOF 09-23 13:19
PROVIDERS: PCP Family Medicine; Visit Provider Family Medicine
DX: D50.9 Iron deficiency anemia, unspecified (principal)
CPT/HCPCS: 85025

== ENCOUNTER 2024-10-15 11:02 | Outpatient (CLI) | payer MEDICARE, SELFPAY ==
--- NOTE | 2024-10-15 | CA_ITS ---
APPROVED REPORT Exam: Pharmacologic Technologist: Lucia Everett Ht: 6 ft 0 in Wt: 148 lbs BSA: 1.87 m2 HR: 48 bpm BP: 137/45 mmHg Stress Test Details Test: Lexiscan HR Resting HR: 48 bpm Max Heart Rate (APMHR): 150.847248 bpm Max HR Achieved: 73 bpm Target HR (85% APMHR): 127.387609 bpm % of APMHR: 48.67 Recovery HR: 64 bpm BP Resting BP: 137.0/45.0 mmHg Max BP: 139.0/62.0 mmHg Recovery BP: 136.0/61.0 mmHg ECG Resting ECG: Sinus bradycardia, PVCs Stress ECG Conclusion Symptoms: Dyspnea Arrhythmias/Ectopy: PVCs ST-T Changes: Less than [address] depression Conclusion: EKG unremarkable due to Lexiscan infusion. Electronically signed by : Kelsey Freeman MD 10/15/2024 14:20:59
--- NOTE | 2024-10-15 11:30 | NM_ITS ---
APPROVED REPORT Exam: Nuclear Stress Test Indication: Chest pain, Fatigue, CAD, Hx of NC, High cholesterol, Tobacco use Patient Location: Outpatient Stress Tech: Lucia Everett [place] Tech:Nimco Spears, ARRT, RT (R)(N) Ht: 6 ft 0 in Wt: 150 lbs HR: 53 bpm BP: 137/45 mmHg BSA: 1.88 m2 TID: 1.03 History: Chest pain, Fatigue, CAD, Hx of NC, High cholesterol, Tobacco use Procedure: Patient received 0.4 mg of intravenous Lexiscan, resting heart rate 53 bpm, resting blood pressure 137/45 mmHg, with Lexiscan maximum heart rate achieved was 86 bpm which is % of the maximum predicted heart rate and blood pressure was 139/62 mmHg. With Lexiscan, patient denied any complaint of chest pain. Cardiac Stress and Resting SPECT Images: Cardiac Stress and Resting SPECT images were obtained using technetium 99m Myoview 32.8 mCi stress and 10.14 mCi at rest. Resting and stress imaging in supine and prone positions demonstrate a large sized, moderate, predominantly fixed perfusion defect in the inferior and inferoseptal LV gamez. There is a small region of reversibility towards the distal inferior LV wall. Gated imaging demonstrates low-normal global LV systolic function. There is mild hypokinesis of the basal inferior LV wall. LVEF is calculated at 50%. Conclusion: Large sized, moderate, predominantly fixed perfusion defect in the inferior and inferoseptal LV gamez. There is a small region of reversibility towards the distal inferior LV wall. Findings are suggestive of partial reversible ischemia. Gated imaging demonstrates low-normal global LV systolic function. There is mild hypokinesis of the basal inferior LV wall. LVEF is calculated at 50%. Electronically signed by : Kelsey Freeman MD 10/15/2024 14:23:04
[2024-10-15] MEDS: SODIUM CHLORIDE 0.9% 10ML SYR (RAD ONLY) 10 ML IV ×2 (13:05→13:06)
[2024-10-15] MEDS: REGADENOSON 0.4MG/5ML SYRINGE 0.4 MG IV (13:05)
[2024-10-15] MEDS: ISOTOPE MYOVIEW (PER STUDY) 1 DOSE IV (13:06)
== END 2024-10-15 23:59 | disposition home or self-care (01) ==
LOC: RAD 11:03
PROVIDERS: PCP Family Medicine; Visit Provider Nurse Practitioner Family
DX: R93.1 Abnormal findings on diagnostic imaging of heart and coronary circulation (principal); I25.10 Atherosclerotic heart disease of native coronary artery without angina pectoris
CPT/HCPCS: 78452; 93017; 93018; A9502; J2785

== ENCOUNTER 2024-10-31 08:28 | Day surgery (SDC) | payer MEDICARE, SELFPAY ==
[2024-10-31] VITALS (14 sets, daily range): BP systolic 119–156; BP diastolic 59–78; PULSE 48–59; RESP 16–20; TEMP 36.3–36.6; O2SAT 93–97; BMI 20.2
--- NOTE | 2024-10-31 07:10 | IR_ITS ---
APPROVED REPORT Patient Location: Outpatient PROCEDURES Left heart catheterization Left ventriculogram Selective coronary angiogram INDICATION Abnormal Myoview, Preoperative evaluation Informed consent was obtained prior to the procedure. COMPLICATIONS NONE Estimated Blood Loss: LESS THAN 10 ML TECHNIQUE One percent lidocaine used to anesthetize the right anterior aspect of the wrist. The right radial artery was accessed via the Seldinger technique. A 6 Y[place]ut sheath was placed in the right radial artery. 2.5 mg of Verapamil, 800 mcg of nitroglycerin, 1mg Lidocaine and 5000 U Heparin were given through the arterial sheath. The 6 Yakut JL 3 guide catheter was also used to perform left heart catheterization, left ventriculogram and selective coronary angiogram. At the end of the procedure the sheath was removed good hemostasis was achieved using Traclet band, patient was transferred to the postop holding area in stable condition. ANGIOGRAPHIC RESULTS The left main artery Normal The left anterior descending artery Has proximal mid vessel 10% luminal regularities. Gives rise to a large diagonal artery which has mild 10% luminal regularities. Distal to this large diagonal artery there is a concentric 30% stenosis within the LAD The circumflex artery Has mid vessel tandem 30 to 40% concentric stenosis The right coronary artery Is dominant has stents in the ostial proximal mid segment. The ostium has 30% concentric stenosis which did not dampen upon engagement with a catheter The COSBY ventriculogram reveals Normal 60% The left ventricular end-diastolic pressure 10 mmHg IMPRESSION Coronary disease as described above Normal ejection fraction Normal LVEDP PLAN 1. Patient is a low and acceptable risk to proceed with elective surgery 2. Continue risk factor modification Electronically signed by : Landon Zhu MD 10/31/2024 15:47:41
[2024-10-31 08:50] LABS: Basophils % 0.3 % (0.1-2.0); Eosinophils # 0.1 K/mm3 (0.0-0.4); Eosinophils % 1.8 % (0.1-12.0); Hematocrit 38.3 % (42.0-52.0); Hemoglobin 12.6 g/dL (14.1-18.0); Lymphocytes # 2.4 K/mm3 (0.7-4.5); Mean Corpuscular HGB Conc 32.9 g/dL (31.8-35.4); Mean Corpuscular Hemoglobin 34.6 pg (27.0-31.2); Mean Corpuscular Volume 105.2 fl (80-94); Mean Platelet Volume 8.7 fl (7.4-10.4); Monocytes # 0.5 K/mm3 (0.1-1.0); Monocytes % 6.6 % (1.7-9.3); Neutrophils # 4.2 K/mm3 (1.8-7.8); Nucleated Red Blood Cells # 0 10^3/uL; Nucleated Red Blood Cells % 0 %; Platelet Count 222 K/mm3 (142-424); Red Blood Count 3.64 M/mm3 (4.60-6.20); Red Cell Distribution Width 13.9 % (11.5-17.5); Red Cell Distribution Width-SD 54.1 fL; White Blood Count 7.3 K/mm3 (4.8-10.8)
[2024-10-31 09:02] LABS: Anion Gap 11.8 mEq/L (5-15); Blood Urea Nitrogen 17 mg/dl (9-20); Calcium 9.3 mg/dl (8.4-10.2); Carbon Dioxide 29 mmol/L (22.0-30.0); Chloride 104 mmol/L (98-107); Creatinine Clearance Estimated 60 mL/min (50-200); Estimated Glomerular Filt Rate 66 ml/min (>60); GFR (African American) 80 ML/MIN (>60); Glucose 87 mg/dl (74-100); Potassium 3.8 mmoL/L (3.5-5.1); Sodium 141 mmol/L (136-145)
[2024-10-31] MEDS: diphenhydrAMINE 50MG/ML VIAL 50 MG IV (09:36)
[2024-10-31] MEDS: HEPARIN 1,000 UNITS/500ML NS (CATH LAB) 3000 UNIT IV (09:36)
[2024-10-31] MEDS: LIDOCAINE 1% 10ML MDV 10 ML IJ (09:37)
[2024-10-31] MEDS: NITROGLYCERIN 800MCG/8ML SYR (CATH LAB) 800 MCG IA (09:37)
[2024-10-31] MEDS: HEPARIN 1,000 UNITS/ML 10ML VIAL (CATH LAB) 5000 UNIT IV (09:39)
[2024-10-31] MEDS: 0.9 % SODIUM CHLORIDE 500 ML 25 ML IV (09:39)
[2024-10-31] MEDS: MIDAZOLAM HCL 1MG/ML 5ML VIAL 1 MG IV (09:40)
[2024-10-31] MEDS: VERAPAMIL 2.5MG/ML 2ML VIAL 2.5 MG IV (09:40)
[2024-10-31] MEDS: FENTANYL 100MCG/2ML VIAL 50 MCG IV (09:41)
[2024-10-31] MEDS: IOPAMIDOL-370 (76%);100ML BOTTLE 70 ML IV (15:34)
== END 2024-10-31 13:35 | disposition home or self-care (01) ==
LOC: CATHLAB 08:29
PROVIDERS: PCP Family Medicine; Visit Provider Internal Medicine
DX: I25.118 Atherosclerotic heart disease of native coronary artery with other forms of angina pectoris (principal); I25.5 Ischemic cardiomyopathy; R93.1 Abnormal findings on diagnostic imaging of heart and coronary circulation; F17.210 Nicotine dependence, cigarettes, uncomplicated; I25.2 Old myocardial infarction; Z88.2 Allergy status to sulfonamides; Z88.5 Allergy status to narcotic agent; Z95.5 Presence of coronary angioplasty implant and graft; Z79.899 Other long term (current) drug therapy; R06.02 Shortness of breath; Z79.01 Long term (current) use of anticoagulants; Z79.51 Long term (current) use of inhaled steroids; E78.5 Hyperlipidemia, unspecified; E03.9 Hypothyroidism, unspecified; I27.20 Pulmonary hypertension, unspecified; I50.20 Unspecified systolic (congestive) heart failure
CPT/HCPCS: 80048; 85025; 93458; 99152; C1725; C1769; J1200; J1644; J3010; Q9967

== ENCOUNTER 2024-11-14 11:15 | Day surgery (SDC) | payer MEDICARE, SELFPAY ==
[2024-11-14 11:41] VITALS: BP 126/44; PULSE 61; RESP 18; TEMP 36.4; O2SAT 96
--- NOTE | 2024-11-14 11:53 | P.PNANES_ITS ---
[facility] Disclaimer: The information contained in this section may have been updated after the patient was seen, as this information can be updated by other users. Medical History Atypical angina Abnormal nuclear cardiac imaging test Abnormal echocardiogram Pre-operative cardiovascular examination SOB (shortness of breath) on exertion Hypotension Diastolic dysfunction HLD (hyperlipidemia) CAD (coronary artery disease) NOVEMBER 2020-Successful stenting of the ostial proximal mid and distal dominant right coronary artery all in a contiguous manner with 3 drug-eluting stents as described above Severe to critical ostial left main disease Successful stenting of the ostial left main critical to severe disease reduced to 0% with 1 drug-eluting stent Severely reduced ejection fraction Elevated LVEDP Ischemic cardiomyopathy Microcytic anemia Hypothyroid COPD (chronic obstructive pulmonary disease) Tobacco use disorder STEMI (ST elevation myocardial infarction) Surgical History H/O heart artery stent H/O bilateral inguinal hernia repair Family History Sister Thyroid disorder Social History Smoking Status: Current every day smoker tobacco type: cigarettes packs per day: 1 alcohol intake: never substance use type: denies use current occupational status: retired Travel in the last 8 weeks?: [place] the [place] household members: significant other and children housing: house caffeine: Yes Have you lived/traveled outside [place] in past 30 days?: No Contact w/someone who lives/traveled outside [place] past 30 days?: No Exposure to someone with infectious disease in past 14 days?: No Do you have a fever (greater than 100.4 F or 38 C)?: No Have you tested positive for COVID-19?: No Exposed to someone with COVID-19 in past 14 days?: No Do you have a sore throat?: No Do you have a cough?: No Do you have any weakness?: No Do you have any diarrhea?: No Are you experiencing any unusual bleeding?: No Do you have any muscle aches/pain?: No Do you have any abdominal pain?: No Are you experiencing loss of taste or smell?: No [facility] Anesthesia Checklist Patient Identification Patient Identification: Arm Band Structural Data Admitted From: Home Planned Operative Procedure/s: EGD/Colonoscopy Consent for Planned Operative Procedure(s) Verified: Yes Verified Documents: Surgical Consent and History and Physical NPO Status Verified Time NPO: 00:00 Additional verifications Anesthesia Reactions: No Airway Assessment Mallampati Score:: Class II C-Spine Mobility Assessed: Yes TMJ Mobility Assessed: Yes Dentition: Poor Dentition Neurological Assessment Level of Consciousness: Awake, Alert and Appropriate Anesthesia Plan Anesthesia Risk discussed: Yes Anesthesia Plan: Verified ASA Class: III Anesthesia Type: MAC
--- NOTE | 2024-11-14 12:38 | EXP.HP ---
History of Present Illness *Admission Date: 11/14/24 *Reason for visit:: Right-sided abdominal discomfort and pain, diarrhea alternating with consti *History of present illness: Mr. Rivera is a 69-year-old gentleman who is here for diagnostic panendoscopy. He has had sharp stabbing right sided abdominal pains and irregular bowel function. He also has anemia and some rectal bleeding. He does have a prior history of a gastric ulcer and has some intractable heartburn. He also has a dilated biliary system and the examination is deemed medically necessary for diagnostic EGD and colonoscopy the patient has been seen, interviewed and examined prior to the procedure by both myself and the anesthesia provider. [facility] Disclaimer: The information contained in this section may have been updated after the patient was seen, as this information can be updated by other users. Medical History Atypical angina Abnormal nuclear cardiac imaging test Abnormal echocardiogram Pre-operative cardiovascular examination SOB (shortness of breath) on exertion Hypotension Diastolic dysfunction HLD (hyperlipidemia) CAD (coronary artery disease) NOVEMBER 2020-Successful stenting of the ostial proximal mid and distal dominant right coronary artery all in a contiguous manner with 3 drug-eluting stents as described above Severe to critical ostial left main disease Successful stenting of the ostial left main critical to severe disease reduced to 0% with 1 drug-eluting stent Severely reduced ejection fraction Elevated LVEDP Ischemic cardiomyopathy Microcytic anemia Hypothyroid COPD (chronic obstructive pulmonary disease) Tobacco use disorder STEMI (ST elevation myocardial infarction) Surgical History H/O heart artery stent H/O bilateral inguinal hernia repair Family History Sister Thyroid disorder Social History Smoking Status: Current every day smoker tobacco type: cigarettes packs per day: 1 alcohol intake: never substance use type: denies use current occupational status: retired Travel in the last 8 weeks?: Inside the [place] household members: significant other and children housing: house caffeine: Yes Have you lived/traveled outside US in past 30 days?: No Contact w/someone who lives/traveled outside US past 30 days?: No Exposure to someone with infectious disease in past 14 days?: No Do you have a fever (greater than 100.4 F or 38 C)?: No Have you tested positive for COVID-19?: No Exposed to someone with COVID-19 in past 14 days?: No Do you have a sore throat?: No Do you have a cough?: No Do you have any weakness?: No Do you have any diarrhea?: No Are you experiencing any unusual bleeding?: No Do you have any muscle aches/pain?: No Do you have any abdominal pain?: No Are you experiencing loss of taste or smell?: No Other Medical History Have you received the Flu Vaccine for this season: No Have you received the Pneumonia Vaccine: Yes Review of Systems Review of Systems Review of systems (narrative): Negative *Cardiovascular Comments: Negative *Gastrointestinal Comments: Negative *Genitourinary Comments: Negative *Musculoskeletal Comments: Negative *Neurologic Comments: Negative Meds Home Medications and Allergies Home Medications ?Medication ?Instructions ?Recorded ?Confirmed ?Type aspirin 81 mg tablet,delayed 81 mg PO DAILY Heart disease 10/29/17 11/14/24 History release metoprolol succinate 25 mg 25 mg PO QDAY #90 tabs 12/27/23 11/14/24 Rx tablet,extended release 24 hr famotidine 40 mg tablet (Pepcid) 40 mg PO Q12H #60 tabs 03/27/24 11/14/24 Rx albuterol sulfate 90 mcg/actuation 2 puff inhalation Q6H PRN 07/29/24 11/14/24 Rx aerosol inhaler (Ventolin HFA) shortness of breath or wheezing 30 days #6.7 grams clopidogrel 75 mg tablet (Plavix) 75 mg PO QDAY #30 tabs 07/29/24 11/14/24 Rx amoxicillin 250 mg capsule 250 mg PO .every other day COPD 08/22/24 11/14/24 Rx 90 days #45 caps nitroglycerin 0.4 mg sublingual 0.4 mg sublingual Q5M #25 tabs 08/22/24 11/14/24 Rx tablet levothyroxine 150 mcg tablet 150 mcg PO DAILY hypothyroidism 90 09/20/24 11/14/24 Rx days #90 tabs atorvastatin 40 mg tablet 40 mg PO HS 30 days #30 tabs 10/18/24 11/14/24 Rx peg 3350-electrolytes 236 240 ml PO Q10M colonscopy #4,000 mL 11/04/24 11/14/24 Rx gram-22.74 gram-6.74 gram-5.86 gram solution (Golytely) New Prescriptions to Start Prescriptions: Allergies Allergy/AdvReac Type Severity Reaction Status Date / Time codeine Allergy GI ISSUES Verified 11/14/24 11:38 Sulfa (Sulfonamide Allergy UNKN Verified 11/14/24 11:38 Antibiotics) Exam Data for Last 24 hours Vital signs and Labs for Last 24 Hours: Temp Pulse Resp BP Pulse Ox O2 Del Method 97.5 F L 61 18 126/44 L 96 Room Air 11/14/24 11:41 11/14/24 11:41 11/14/24 11:41 11/14/24 11:41 11/14/24 11:41 11/14/24 11:41 I & O for Last 24 hours: Intake & Output 11/11/24 11/12/24 11/13/24 11/14/24 23:59 23:59 23:59 23:59 Weight 148 lb *Routine HEENT Exam Head: Present normocephalic Eye: Present EOMI and PERRL ENT: Present mucous membranes moist *Routine Neck Exam Neck: Present supple *Routine Respiratory Exam Respiratory: Present CTA bilaterally *Routine Cardiovascular Exam Cardiovascular: Present RRR *Routine Abdominal Exam Abdominal: Present soft and normoactive bowel sounds; Absent tenderness *Routine Rectal Exam Rectal:: deferred *Routine Genitalia Exam Genitalia:: deferred *Routine Extremities Exam Extremities: Absent cyanosis, clubbing or edema *Routine Skin Exam Skin: Present warm; Absent rash *Routine Neurological Exam Neurological: Present alert and oriented X3 Assessment and Plan *Assessment and plan (1) History of gastric ulcer: Status: Acute Category: Medical Code(s): Z87.11 - Personal history of peptic ulcer disease (2) Bloating: Status: Acute Category: Medical Code(s): R14.0 - Abdominal distension (gaseous) (3) Constipation: Status: Acute Category: Medical Code(s): K59.00 - Constipation, unspecified (4) Common bile duct dilation: Status: Acute Category: Medical Code(s): K83.8 - Other specified diseases of biliary tract (5) Incontinence of feces: Status: Acute Category: Medical Code(s): R15.9 - Full incontinence of feces (6) Bright red blood per rectum: Status: Acute Category: Medical Code(s): K62.5 - Hemorrhage of anus and rectum (7) Right sided abdominal pain: Status: Acute Category: Medical Code(s): R10.9 - Unspecified abdominal pain (8) GERD (gastroesophageal reflux disease): Status: Acute Category: Medical Code(s): K21.9 - Gastro-esophageal reflux disease without esophagitis (9) Anemia: Status: Acute Category: Medical Code(s): D64.9 - Anemia, unspecified (10) Melena: Status: Acute Category: Medical Code(s): K92.1 - Melena Plan A/P: 1. GERD with prior history of gastric ulcers and anemia for upper endoscopy, right-sided abdominal pain, bright red blood and anemia for colonoscopy is the preprocedural diagnosis. The patient will be anesthetized/sedated using MAC sedation. The patient has been seen and examined. Cardiac and lung assessment prior to the examination is stable. Proceed with planned diagnostic EGD and colonoscopy.
[2024-11-14 12:42] VITALS: O2SAT 98
--- NOTE | 2024-11-14 13:02 | HMH.PROCNOTE ---
[facility] Procedure Note Date: 11/14/24 Time: 13:02 Procedure Note:: Upper Endoscopy Procedure Report: Esophagogastroduodenoscopy with cold biopsies Endoscopost: Nicho Koehler II, MD Referring Physician: Mio Hill MD Date of Procedure: November 14, 2024 Equipment: Olympus GIF 190 standard upper endoscope Sedation: MAC sedation Indications: Mr. Rivera is a 69-year-old gentleman who is here for diagnostic EGD and colonoscopy. He has been struggling with right sided abdominal discomfort which occurs daily with episodic sharp stabbing pains that can awaken him at night. He also reports a lot of gassiness, bloating and bowel irregularity. He reports alternating constipation and then will have diarrhea. He does report intractable heartburn and reflux and takes famotidine 2 tablets in the morning and 1 tablet in the evening. He reports no dysphagia. He does have some fullness. He also reports some dark stools and some rectal bleeding. He does have a history of anemia and his hemoglobin has been around 11. He is on anticoagulation. The patient reports some fecal incontinence. His CAT scan showed gallbladder wall thickening and some pericholecystic fluid. His ultrasound also showed some sludge and some mild gallbladder wall thickening. The common bile duct was 14 mm. His MRCP also showed dilated CBD. His alkaline phosphatase is 94 with ALT 20 and total bilirubin 0.5. His fecal elastase was greater than 549 mcg/g. PCR panel was negative. Procedure: Prior to the procedure, a history and physical exam was performed, and patient's medications and allergies were reviewed. The risks, benefits and alternatives of the sedation and procedure were discussed with the patient. All questions were answered and informed consent was obtained. The patient was brought to the procedure room. Patient identification and proposed procedure were verified by the physician and the nurse. The patient was placed in a left lateral decubitus position and the scope was passed under direct vision. Throughout the procedure, the patient's blood pressure, pulse, and oxygen saturations were monitored continuously. The upper GI endoscopy was accomplished without difficulty. The patient tolerated the procedure well. Findings: The scope was passed directly into the upper esophagus and advanced to the third portion of the duodenum. The post bulbar duodenum, ampulla and duodenal bulb were normal with normal mucosa and conniventes. The scope was withdrawn through a normal duodenal bulb and pylorus into the stomach. There was marked bile reflux with moderate linear reactive gastropathy of the antrum and body. There was some chronic gastritis of the body and fundus of the stomach. Cold biopsies were taken along the lesser curvature of the stomach. Upon retroflexion there was a 2 cm hiatal hernia. The scope was then withdrawn into the esophagus. There was evidence of short segment Amin's esophagus and NBI (narrowband imaging) was utilized to take selected biopsies of the Amin's. This was [place] classification C2M2. There was no evidence of reflux esophagitis and the remainder of the esophageal mucosa was normal. Impression: 1. Short segment Amin's esophagus ([place] classification C2 M2) 2. Small hiatal hernia (2 cm) with nonerosive GERD 3. Bile reflux with moderate linear reactive gastropathy of antrum and moderate chronic gastritis of body and fundus Plan: I will follow-up the biopsies and proceed with diagnostic colonoscopy.
--- NOTE | 2024-11-14 13:20 | HMH.PROCNOTE ---
[facility] Procedure Note Date: 11/14/24 Time: 13:20 Procedure Note:: Colonoscopy Procedure Report: Colonoscopy Endoscopist: Nicho Koehler II, MD Referring physician: Mio Hill MD Date of Procedure: November 14, 2024 Equipment: Olympus 190 variable stiffness pediatric colonoscope Sedation: MAC sedation Indication: Mr. Rivera is a 69-year-old gentleman who is here for diagnostic EGD and colonoscopy. He has been struggling with right sided abdominal discomfort which occurs daily with episodic sharp stabbing pains that can awaken him at night. He also reports a lot of gassiness, bloating and bowel irregularity. He reports alternating constipation and then will have diarrhea. He does report intractable heartburn and reflux and takes famotidine 2 tablets in the morning and 1 tablet in the evening. He reports no dysphagia. He does have some fullness. He also reports some dark stools and some rectal bleeding. He does have a history of anemia and his hemoglobin has been around 11. He is on anticoagulation. The patient reports some fecal incontinence. His CAT scan showed gallbladder wall thickening and some pericholecystic fluid. His ultrasound also showed some sludge and some mild gallbladder wall thickening. The common bile duct was 14 mm. His MRCP also showed dilated CBD. His alkaline phosphatase is 94 with ALT 20 and total bilirubin 0.5. His fecal elastase was greater than 549 mcg/g. PCR panel was negative. The patient does state that he had a colonoscopy in 2022 at [facility] ([facility]). He reports no family history of colon cancer. He did lose a moderate amount of weight after his acute [place]/heart attack in 2020 (85 pounds). Procedure: Prior to the procedure, a history and physical exam was performed, and patient's medications and allergies were reviewed. The risks, benefits and alternatives of the sedation and procedure were discussed with the patient. All questions were answered and informed consent was obtained. The patient was brought to the procedure room. Patient identification and proposed procedure were verified by the physician and the nurse. The patient was placed in a left lateral decubitus position and the scope was passed under direct vision. Throughout the procedure, the patient's blood pressure, pulse, and oxygen saturations were monitored continuously. The colonoscopy was accomplished without difficulty. The patient tolerated the procedure well. Findings: On digital rectal examination there was normal rectal tone. There were no external hemorrhoids. The colonoscope was introduced through the anal canal to the rectum and advanced to the cecum. The ileocecal valve and appendiceal orifice were identified. The scope was advanced a short distance into the ileum which appeared grossly normal. The scope was then withdrawn into the colon. The cecum, ascending and transverse colon and mucosa were grossly normal. There were scattered diverticuli throughout the descending and sigmoid colon (LEFT colon). The rectum itself was normal. Upon retroflexion within the rectum there were grade 2 internal hemorrhoids. The preparation was excellent throughout with Marathon Preparation Score of 9. The cecal time was 12 minutes. Impression: 1. Left-sided diverticulosis 2. Grade 2 internal hemorrhoids Plan: The patient should not require any further surveillance colonoscopy. I do feel that his right sided abdominal pain may be biliary colic and his CAT scan and ultrasound showed some signs of cholecystitis (gallbladder wall thickening as well as pericholecystic fluid). The patient should be seen by general surgery. He also had the CBD dilation without any evidence of stones or stricture and his liver chemistries are normal. Less likely, this represents choledocholithiasis and his EGD did not show any ampullary mass or ampullary abnormality. We may still entertain ERCP. 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 We will discuss treatment options and make referral to general surgery.
[2024-11-14 13:22] VITALS: BP 87/45; PULSE 60; RESP 20; TEMP 36.2; O2SAT 100
[2024-11-14 13:32] VITALS: BP 91/43; PULSE 64; RESP 19; O2SAT 100
[2024-11-14 13:42] VITALS: BP 103/45; PULSE 61; RESP 19; O2SAT 100
[2024-11-14 13:52] VITALS: BP 107/54; PULSE 62; RESP 19; O2SAT 100
== END 2024-11-14 14:04 | disposition home or self-care (01) ==
PROVIDERS: PCP Family Medicine; Visit Provider Internal Medicine Gastroenterology
PROC: 0DJ08ZZ Inspection of Upper Intestinal Tract, Via Natural or Artificial Opening Endoscopic (ICD-10-PCS; CPT 45378; principal; 2024-11-14 12:30)
DX: K31.9 Disease of stomach and duodenum, unspecified (principal); K44.9 Diaphragmatic hernia without obstruction or gangrene; K29.70 Gastritis, unspecified, without bleeding; K22.70 Barrett's esophagus without dysplasia; K57.30 Diverticulosis of large intestine without perforation or abscess without bleeding; K64.1 Second degree hemorrhoids; R10.11 Right upper quadrant pain; R10.31 Right lower quadrant pain; R14.0 Abdominal distension (gaseous); K59.00 Constipation, unspecified; R19.7 Diarrhea, unspecified; K21.9 Gastro-esophageal reflux disease without esophagitis; K62.5 Hemorrhage of anus and rectum; D64.9 Anemia, unspecified; R15.9 Full incontinence of feces; R63.4 Abnormal weight loss
CPT/HCPCS: 43239; 45378

== ENCOUNTER 2024-11-26 12:19 | Outpatient (CLI) | payer MEDICARE, SELFPAY | END 2024-11-26 23:59 | disposition home or self-care (01) | LOC: PREOP 12:20 | PROVIDERS: PCP Family Medicine; Visit Provider Surgery | DX: R69 Illness, unspecified (principal) ==

== ENCOUNTER 2024-11-28 07:06 | Day surgery (SDC) | payer MEDICARE, SELFPAY ==
[2024-11-26 13:49] VITALS: BMI 19.9
[2024-11-28] VITALS (10 sets, daily range): BP systolic 110–138; BP diastolic 52–84; PULSE 44–81; RESP 16–18; TEMP 36.2–36.5; O2SAT 93–99
[2024-11-28] MEDS: 0.9 % SODIUM CHLORIDE 1000ML 1,000 ML 25 ML IV (08:04)
--- NOTE | 2024-11-28 08:30 | P.PNANES_ITS ---
[facility] Disclaimer: The information contained in this section may have been updated after the patient was seen, as this information can be updated by other users. Medical History Atypical angina Abnormal nuclear cardiac imaging test Abnormal echocardiogram Pre-operative cardiovascular examination SOB (shortness of breath) on exertion Hypotension Diastolic dysfunction HLD (hyperlipidemia) CAD (coronary artery disease) NOVEMBER 2020-Successful stenting of the ostial proximal mid and distal dominant right coronary artery all in a contiguous manner with 3 drug-eluting stents as described above Severe to critical ostial left main disease Successful stenting of the ostial left main critical to severe disease reduced to 0% with 1 drug-eluting stent Severely reduced ejection fraction Elevated LVEDP Ischemic cardiomyopathy Microcytic anemia Hypothyroid COPD (chronic obstructive pulmonary disease) Tobacco use disorder STEMI (ST elevation myocardial infarction) Surgical History H/O heart artery stent H/O bilateral inguinal hernia repair Family History Sister Thyroid disorder Social History Smoking Status: Current every day smoker tobacco type: cigarettes packs per day: 1 alcohol intake: never substance use type: denies use current occupational status: retired Travel in the last 8 weeks?: [place] the [place] household members: significant other and children housing: house caffeine: Yes Have you lived/traveled outside US in past 30 days?: No Contact w/someone who lives/traveled outside [place] past 30 days?: No Exposure to someone with infectious disease in past 14 days?: No Do you have a fever (greater than 100.4 F or 38 C)?: No Have you tested positive for COVID-19?: No Exposed to someone with COVID-19 in past 14 days?: No Do you have a sore throat?: No Do you have a cough?: No Do you have any weakness?: No Do you have any diarrhea?: No Are you experiencing any unusual bleeding?: No Do you have any muscle aches/pain?: No Do you have any abdominal pain?: No Are you experiencing loss of taste or smell?: No [facility] Anesthesia Checklist Patient Identification Patient Identification: Arm Band and Family Structural Data Admitted From: Home Planned Operative Procedure/s: Yayo Lona Verified Documents: Surgical Consent and History and Physical NPO Status Verified Time NPO: 00:00 Additional verifications Patient : No Anesthesia Reactions: No Hx Blood Transfusions: No Blood Transfusion Reaction: No Cephalosporin Allergy: No Previous Colonoscopy: Yes Airway Assessment Mallampati Score:: Class II C-Spine Mobility Assessed: Yes TMJ Mobility Assessed: Yes Dentition: Good Dentition Neurological Assessment Level of Consciousness: Awake, Alert, Appropriate and Follows Commands Hx Seizures: No Numbness or tingling in extremities: No Anesthesia Plan Anesthesia Risk discussed: Yes ASA Class: III Anesthesia Type: General Preoperative Comments Pre-Operative Comments: History of LA. Stents X4. Cr. 1.10.
[2024-11-28] MEDS: CEFAZOLIN SODIUM 2 GM in 0.9 % SODIUM CHLORIDE 100 ML IV (09:30)
[2024-11-28] MEDS: LIDOCAINE 1% 20ML MDV 20 ML (10:01)
--- NOTE | 2024-11-28 10:50 | P.OP_ITS ---
Date of procedure: 11/28/24 Pre-op Diagnosis:: Chronic calculus cholecystitis Post-op Diagnosis:: Same Procedure performed:: Laparoscopic cholecystectomy Surgeon:: Don Reddy MD CREDIT PRODUCT ANALYST:: Jh Leonard Anesthesia: GETPrerna Estimated blood loss (mL): 15 Operative findings:: Pericholecystic fat stranding Significant infundibular thickening Operative note:: After informed consent was obtained, the patient was taken to the operating room and placed in the supine position. General anesthesia was induced and the abdomen was prepped and draped in a sterile fashion. After infiltration with local anesthetic an infraumbilical incision was made. A Veress needle was placed in position. The abdomen was insufflated. A 5 mm optical trocar was placed in position. Under direct visualization, a 12 mm trocar was placed in the subxiphoid position and 2 additional 5 mm trocars were placed in the right upper quadrant. The gallbladder was elevated up and over the liver margin. The tissue around the cystic duct was carefully dissected. 3 clips were placed proximally and the duct was transected with harmonic william. Harmonic william were then utilized to dissect the gallbladder away from the liver margin with careful attention to the control of the cystic artery. The gallbladder was placed in a retrieval bag and removed through the subxiphoid trocar site. The right upper quadrant was thoroughly irrigated. No active bleeding or bile leak was noted. Fascia at the subxiphoid trocar site was reapproximated utilizing 0 Ethibond. The remaining trocars were removed. All wounds were irrigated and skin was closed with 4-0 Monocryl in an interrupted mattress fashion to facilitate hemostasis. The patient's anesthetic agents were reversed and extubation was completed prior to transfer to recovery in stable condition. Condition: stable Disposition: PACU Specimens:: Gallbladder and contents Complications:: No immediate
--- NOTE | 2024-11-28 11:00 | EXP.ANES.I ---
[facility] Anesthesia Record Part I Anesthesia Record I Intake, IV Amount: 800 Hydration: Adequate Estimated blood loss (mL): 15 Urine output (mL): 0 Blood Products used (#): none Blood Pressure: 119/64 SaO2: 93 Pulse Rate: 81 Airway Patency: Patent Respiratory Rate: 16 Temperature: 97.7 F Patient is:: Drowsy and Stable Stable to PACU at:: 10:54
--- NOTE | 2024-11-28 11:28 | SUR.PHASEI ---
Patient's vital signs stable and no C/o pain noted. Patient transported to post op and report given to NGOC Martines.
--- NOTE | 2024-11-28 13:33 | P.PNANES_ITS ---
[facility] Anesthesia Record Part II Anesthesia Record Part II Discharge Time: 11:23 Destination: Surgical Day Care (OP Surgery) PACU nurse assessment reviewed?: Yes Patient Condition:: Good Anesthesia Complications:: None Swallowing reflex intact?: Yes Airway Patency: Patent Cyanosis?: No Blood Pressure: 110/55 SaO2: 95 Respiratory Rate: 16 Pulse Rate: 69 Temperature: 97.7 F Mental Status: Alert & Oriented Pain level:: 0 Nausea and/or vomitting:: None Intake, IV Amount: 0 Hydration: Adequate
== END 2024-11-28 11:57 | disposition home or self-care (01) ==
PROVIDERS: PCP Family Medicine; Visit Provider Surgery
PROC: 0FT44ZZ Resection of Gallbladder, Percutaneous Endoscopic Approach (ICD-10-PCS; CPT 47562; principal; 2024-11-28 09:00)
DX: K80.10 Calculus of gallbladder with chronic cholecystitis without obstruction (principal)
CPT/HCPCS: 47562; 96374; J0690; J1100; J1596; J2250; J2405; J3010; J7030

== ENCOUNTER 2025-04-16 10:34 | Outpatient (CLI) | payer MEDICARE, SELFPAY ==
[2025-04-16 22:16] LABS: Hematocrit 36.3 % (42.0-52.0); Hemoglobin 11.6 g/dL (14.1-18.0); Immature Granulocytes % 0.3 %; Mean Corpuscular HGB Conc 32.0 g/dL (31.8-35.4); Mean Corpuscular Hemoglobin 34.7 pg (27.0-31.2); Mean Corpuscular Volume 108.7 fl (80-94); Nucleated Red Blood Cells % 0 %; Platelet Count 236 K/mm3 (142-424); Red Blood Count 3.34 M/mm3 (4.60-6.20); Red Cell Distribution Width-SD 58.7 fL; White Blood Count 6.1 K/mm3 (4.8-10.8)
[2025-04-16 22:45] LABS: Alanine Aminotransferase 17 U/L (12-78); Albumin Level 3.9 g/dl (3.5-5.0); Albumin/Globulin Ratio 1.7 (1.1-1.8); Alkaline Phosphatase 112 U/L (38-126); Anion Gap 15.1 mEq/L (5-15); Aspartate Amino Transferase 30 U/L (17-59); Bilirubin,Total 0.7 mg/dl (0.2-1.3); Blood Urea Nitrogen 18 mg/dl (9-20); Calcium 9.4 mg/dl (8.4-10.2); Carbon Dioxide 26 mmol/L (22.0-30.0); Chloride 105 mmol/L (98-107); Cholesterol 101 mg/dl (140-200); Creatinine,Serum 0.80 mg/dl (0.66-1.25); Estimated Glomerular Filt Rate 96 ml/min (>60); GFR (African American) 116 ML/MIN (>60); Globulin 2.3 g/dL (1.3-3.2); Glucose 59 mg/dl (74-100); HDL Cholesterol 36 mg/dl (40-60); Potassium 5.1 mmoL/L (3.5-5.1); Sodium 141 mmol/L (136-145); Total Protein,Serum 6.2 g/dl (6.3-8.2); Triglycerides 69 mg/dl (30-150)
[2025-04-16 23:16] LABS: Thyroid Stimulating Hormone 0.20 uIU/mL (0.465-4.68)
== END 2025-04-16 23:59 ==
LOC: LAB.DROPOF 04-17 11:48
PROVIDERS: PCP Family Medicine; Visit Provider Family Medicine
DX: D64.9 Anemia, unspecified (principal); E03.9 Hypothyroidism, unspecified; E78.5 Hyperlipidemia, unspecified
CPT/HCPCS: 80053; 80061; 84443; 85025

== ENCOUNTER 2025-05-29 13:23 | Outpatient (CLI) | payer MEDICARE, SELFPAY ==
[2025-05-29 18:57] LABS: Thyroid Stimulating Hormone 2.56 uIU/mL (0.465-4.68)
== END 2025-05-29 23:59 ==
LOC: LAB.DROPOF 06-02 09:03
PROVIDERS: PCP Family Medicine; Visit Provider Family Medicine
DX: E03.9 Hypothyroidism, unspecified (principal)
CPT/HCPCS: 84443